=== PATIENT | female | born 1970 | race Caucasian/White ===

== ENCOUNTER → 2023-10-11 | Outpatient (CLI) | payer OTHER, SELFPAY ==
[2023-10-11 06:53] LABS: Absolute Lymphocyte Count 2.12 X10^3/uL (0.83-4.51); Absolute Neutrophil Count 2.2 X10^3/uL (2.0-7.7); Basophil# 0.06 X10^3/uL; Basophil% 1.2 % (0-1); Eosinophil# 0.32 X10^3/uL; Eosinophils% 6.3 % (0-5); Hematocrit 41.5 % (37-47); Hemoglobin 13.3 g/dL (12.0-15.0); Lymphocyte # 2.12 X10^3/ul (0.83-4.51); Lymphocyte % 41.7 % (19-41); Mean Corpuscular Hgb 29.2 pg (27.0-32.0); Mean Corpuscular Volume 91.2 fL (81-99); Mean Platelet Vol. 9.4 fl (6.2-12.0); Monocyte# 0.41 X10^3/uL; Monocyte% 8.1 % (0-10); NRBC Flagged by Analyzer 0 % (0-5); Neutrophil # 2.15 X10^3/uL (2.7-7.7); Neutrophil % 42.3 % (47-70); Platelet Count 363 K/mm3 (150-450); RBC Distribution Width CV 14.8 % (11.6-14.6); RBC Distribution Width SD 48.4 fl (35.1-43.9); Red Blood Count 4.55 M/mm3 (4.2-5.4); White Blood Count 5.1 K/mm3 (4.4-11.0)
[2023-10-11 08:12] LABS: ALB/GLOB Ratio 0.9 RATIO (0.9-2.4); AST(SGOT) 16 U/L (15-37); Alanine Aminotransfer ALT/SGPT 33 U/L (13-56); Albumin, Serum 3.7 g/dL (3.2-5.0); Alkaline Phosphatase 68 U/L (45-117); Anion Gap 6 (5-15); BUN 28 mg/dL (7-18); BUN/Creat Ratio 41.1 RATIO (10-20); Calcium,Total 9.1 mg/dL (8.5-10.1); Chloride 108 mmol/L (98-107); Cholesterol 238 mg/dL (200); Creatinine, Serum 0.68 mg/dL (0.55-1.02); EST Glomerular Filtration Rate 96 mL/min (>60); Est Glom Filt Rate - Afr Amer 116 mL/min (>60); Globulin 3.9 g/dL (2.2-4.2); Glucose 91 mg/dL (74-106); High Density Lipoprotein 81 mg/dL; Luteinizing Hormone 32.3 mIU/mL; Potassium 3.8 mmol/L (3.5-5.1); Protein, Total 7.6 g/dL (6.4-8.2); Sodium Level 140 mmol/L (136-145); Thyroid Stim Hormone (TSH) 2.56 uIU/mL (0.358-3.74); Triglycerides 47 mg/dL; Very Low Density Lipoprotein 9 mg/dL (5-40)
[2023-10-11 10:55] LABS: Hemoglobin A1c 5.3 % (3.8-5.6)
[2023-10-17 20:08] LABS: Estrogen, Total, Serum 123 pg/mL (.)
== END | disposition home or self-care (01) ==
LOC: LAB 06:27
PROVIDERS: PCP Nurse Practitioner Family; Referring Provider Nurse Practitioner Family; Visit Provider Nurse Practitioner Family
DX: E66.9 Obesity, unspecified (principal); I10 Essential (primary) hypertension; N95.0 Postmenopausal bleeding
CPT/HCPCS: 36415; 80053; 80061; 82672; 83001; 83002; 83036; 84443; 85025

== ENCOUNTER → 2023-10-17 | Outpatient (CLI) | payer OTHER, SELFPAY ==
--- NOTE | 2023-10-17 12:13 | US_ITS ---
STUDY: ULTRASOUND TRANSVAGINAL CLINICAL: Female, 53 years old. POST MEHNAZ BLEEDING TECHNIQUE: Transvaginal COMPARISON: None. FINDINGS: Normal uterine size measuring 5.8 x 3.8 x 2.9 cm in maximal craniocaudal dimension. There are no myometrial masses. Normal endometrial thickness measuring 2 mm. There are no endometrial masses, and there is no fluid in the endometrial cavity. Normal uterine cervix. The ovaries are not visualized.. There is no free fluid in the pelvis. Polycystic ovary disease: No. US/Transvaginal Non- IMPRESSION: Normal transvaginal pelvic ultrasound. Electronically Signed: Gianni Macedo MD at 12:18 EDT ,
== END | disposition home or self-care (01) ==
LOC: US 12:11
PROVIDERS: PCP Nurse Practitioner Family; Referring Provider Nurse Practitioner Family; Visit Provider Nurse Practitioner Family
DX: N95.0 Postmenopausal bleeding (principal)
CPT/HCPCS: 76830

== ENCOUNTER → 2023-10-31 | Outpatient (CLI) | payer OTHER, SELFPAY ==
--- NOTE | 2023-10-31 | EMB_PTH ---
PATIENT: JENNIFER DYKES [facility]#:[id number] AGE/SX: 53/F ROOM: RE10/31/[address]: MARLO Horta : 1970 BED: DIS: 10/31/2023 SPEC #: [id number] RECD: 10/31/23 13:26 STATUS: ANDERS REDuc #: [id number] GREGORIA: 10/31/23 00:[address]: Allie Burleson NP DEPT: SURGICAL PATHOLOGY RECD BY: Jacky Damon ENTERED: 10/31/23 13:26 SP TYPE: ENDOM BX/C LIANE DR: Lary Urbina [facility], [employer] [facility] Tissues: Endometrium, NOS Procedures: Surgery Specimen Level IV HEADER OPERATION: Endometrial biopsy PRE-OP DIAGNOSIS: Pre-menopausal bleeding TISSUE SUBMITTED: Endometrial lining MICROSCOPIC DIAGNOSIS Endometrium, biopsy: Strips of benign superficial glandular mucosa. AM/mr 11/01/2023 MICROSCOPIC DESCRIPTION Slides are reviewed. GROSS DESCRIPTION Received is one container labeled with the patient's name and not further designated. The specimen consists of minute fragments of light iqbal soft tissue measuring in aggregate 0.1 x <0.1 x <0.1cm. The specimen is submitted in its entirety for cellblock preparation. AM/mr 10/31/2023 TC:5 CPT:65467
[2023-11-07 16:10] LABS: HPV APTIMA, High Risk Negative (Negative)
== END | disposition home or self-care (01) ==
PROVIDERS: PCP Nurse Practitioner Family; Referring Provider Nurse Practitioner Women's Health; Visit Provider Nurse Practitioner Women's Health
DX: N95.0 Postmenopausal bleeding (principal)
CPT/HCPCS: 87624; 88175; 88305; G0145

== ENCOUNTER → 2023-11-13 | Outpatient (CLI) | payer OTHER, SELFPAY ==
--- NOTE | 2023-11-13 11:47 | BI_ITS ---
MAMMOGRAPHY - BILATERAL SCREENING REASON FOR EXAM: Female, 53 years old. Routine annual screening examination. PERTINENT HISTORY: Non-contributory. Remote left excisional breast biopsy. TECHNIQUE: Digital bilateral breast cyndi (3D mammographic acquisition) in the CC and MLO projections. 2-D mediolateral oblique (MLO) and craniocaudad (CC) views of both breasts were obtained. CAD: Full Field Digital Mammography with Computer Added Detection was performed. COMPARISON: No comparison mammograms available at this time. If any prior films become available, an addendum to this report can be generated. FINDINGS: Breast Composition: The breasts are almost entirely fatty. There are no dominant masses or suspicious calcifications. There is a 4.6 mm calcified nodule in the retroareolar region of the left breast suggestive of a calcified fibroadenoma. Fat-containing bilateral axillary lymph nodes. No other significant abnormalities are identified. BI/SCRN MAMM (CAD)W/CYNDI BILAT IMPRESSION: Negative screening mammogram. Yearly followup mammogram recommended. (A) ASSESSMENT CATEGORY: BIRADS Category 2: Benign. A letter regarding these results will be sent to the patient by the facility within 30 days. Approximately 10% of breast cancers are not detected by mammography. A normal mammogram should not delay biopsy of a clinically suspicious abnormality. [id number] Electronically Signed: Alton Davis MD at 14:39 EDT ,
== END | disposition home or self-care (01) ==
LOC: OPBI 11:47
PROVIDERS: PCP Nurse Practitioner Family; Referring Provider Nurse Practitioner Women's Health; Visit Provider Nurse Practitioner Women's Health
DX: Z12.31 Encounter for screening mammogram for malignant neoplasm of breast (principal)
CPT/HCPCS: 77063; 77067

== ENCOUNTER → 2023-11-13 | Outpatient (CLI) | payer OTHER, SELFPAY | END | disposition home or self-care (01) | LOC: SL 12:53 | PROVIDERS: PCP Nurse Practitioner Family; Referring Provider Nurse Practitioner Family; Visit Provider Nurse Practitioner Family | DX: G47.10 Hypersomnia, unspecified (principal) | CPT/HCPCS: 95806 ==

== ENCOUNTER → 2024-11-19 | Outpatient (CLI) | payer OTHER, SELFPAY ==
--- NOTE | 2024-11-19 13:00 | BI_ITS ---
EXAM: SCRN MAMM (CAD)W/CYNDI BILAT DATE: 11/19/2024 CLINICAL HISTORY: F, Age 54 y/o , SCREEN FOR BREAST CANCER No family history. BREAST CANCER RISK ASSESSMENT: Not assessed. TECHNIQUE: Bilateral screening digital breast tomosynthesis with 2D and 3D images. Computer aided detection. COMPARISON: Prior exam(s) dated November 13, 2023.. FINDINGS: TISSUE DENSITY: The breast tissue is composed of scattered area of fibroglandular density. Bilateral Breast Mammographic Findings: No significant masses, calcifications or other abnormalities are identified. Stable calcified 4.5 mm nodule in the lateral retroareolar region of the left breast. No suspicious masses, areas of developing architectural distortion, or suspicious calcifications. There has been no significant interval change. BI/SCRN MAMM (CAD)W/CYNDI BILAT IMPRESSION: OVERALL FINAL ASSESSMENT: BIRADS 2 BENIGN FINDING RECOMMENDATION: Routine annual follow-up in 1 Year A letter with findings and recommendations will be mailed to the patient. Reading Location: [place] [address]
== END | disposition home or self-care (01) ==
LOC: OPBI 13:00
PROVIDERS: PCP Nurse Practitioner Family; Referring Provider Nurse Practitioner Women's Health; Visit Provider Nurse Practitioner Women's Health
DX: Z12.31 Encounter for screening mammogram for malignant neoplasm of breast (principal)
CPT/HCPCS: 77063; 77067

== ENCOUNTER → 2025-01-27 | Outpatient (CLI) | payer OTHER, SELFPAY ==
--- OUTSIDE RECORDS SUMMARY | 2025-01-27 06:36 | XMS RPT_ITS | CCD ---
Author Organization [facility] Care Team Providers Care Breaker Up Machine Operator Name Role Phone ROSARIO SUERO MD Unavailable Carlitos JOURNEY LINEMAN-C, Lary Primary Care Provider [phone] Assessment, Health Risk Attending Provider Unava ilable Assessment, Health Risk Referring Provider Unava ilable Carlitos JOURNEY LINEMAN-C, Lary Referring Provider Gorham JOURNEY LINEMAN-C, Allie Attending Provider [phone] Benjy JOURNEY LINEMAN-C, Allie Referring Provider [phone] Assessment, Health Risk Attending Unavaila ble Assessment, Health Risk Referring Unavaila ble [facility] Unavailabl e Beam [facility], [place] Attending Unavailable Beam [facility], [place] Referring Unavailable [facility] Unavailabl Luiz Chen Attending Unavailable [facility] Unavailabl e Carlitos [facility], [facility] Referring Unavailabl e Gorham JOURNEY LINEMANAllie Attending Unavailable [facility] Unavailabl e [facility] Referring Unavailabl e Gorham JOURNEY LINEMANAllie Attending Unavailable Benjy Allie BLANK Referring Unavailable [facility] UnavailCasper Gonzalez Referring Unavailable [facility] UnavailCasper Gonzalez Attending Unavailable Medications Current Medications Medication Drug Class(es) Dates Sig (Normalized) Sig (Original) amLODIPine 2.5 mg oral tablet (2 sources) Dihydropyridine Calcium Channel Jerald Start: 10-31-2023 take 1 tablet by mouth once daily Amlodipine (Norvasc) 2.5 mg tablet Active 2.5 mg PO DAILY October 31, 2023 12:00am rosuvastatin calcium 5 mg oral tablet (2 sources) HMG-CoA Reductase Inhibitor Start: 11-04-2024 take 1 tablet by mouth once daily Rosuvastatin (Crestor) 5 mg tablet Active 5 mg PO DAILY November 04, 2024 12:00am Semaglutide (Weight Loss) (2 sources) Start: 11-04-2024 Semaglutide (Weight Loss) 2.4 mg/0.75 mL pen injector Active mg SC November 04, 2024 12:00am Completed/Discontinued Medications Medication Drug Class(es) Dates Sig (Normalized) Sig (Original) predniSONE 10 mg oral tablet (2 sources) Start: 03-02-2024 End: 11-04-2024 take 4 tablets by mouth once daily, then take 3 tablets by mouth once daily, then take 2 tablets by mouth once daily, then take 1 tablet by mouth once daily Prednisone 10 mg tablet Discontinued 10 mg PO DAILY March 02, 2024 12:00am November 04, 2024 11:19am 4 tablets daily x3 days, then 3 tablets daily x3 days, then 2 tablets daily x3 days, then 1 tablet daily x3 days Problems Active Problems Problem Classification Problem Date Documented Date Episodic/Chronic Essential hypertension (2 sources) Hypertensive disorder; Translations: [Essential (primary) hypertension] 10-31-2023 Chronic Immunizations and screening for infectious disease (1 source) Patient encounter status; Translations: [Encounter for screening for COVID-19] 01-16-2022 Episodic Menopausal disorders (2 sources) Postmenopausal bleeding; Translations: [Postmenopausal bleeding] 10-31-2023 Chronic Other nutritional; endocrine; and metabolic disorders (2 sources) Obesity; Translations: [Obesity, unspecified] 10-31-2023 Chronic Comment on above: Has lost 100# with d iet and exercise Other screening for suspected conditions (not mental disorders or infectious disease) (1 source) Encounter for screening mammogram for malignant neoplasm of breast; Translations: [Encounter for screening mammogram for malignant neoplasm of breast] Onset: 11-25-2024 Episodic Poisoning by nonmedicinal substances (2 sources) Allergic reaction to wasp sting; Translations: [Toxic effect of venom of wasps, accidental (unintentional), initial encounter] 03-02-2024 Episodic Past or Other Problems Problem Classification Problem Date Documented Da te Episodic/Chronic NEGATED: Highlighted row has been ruled out!Unclassified (1 source) No Problem Information Available Results Test Name Value Interpretation Reference Range Facility Breast imaging reportOrdered By: Alton Davis on 11-19-2024 Study report [facility] Imaging Services [address] [place] [address] SCRN MAMM (CAD)W/CYNDI BILAT MR#: [id number] Acct: [id number] Name: JENNIFER DYKES Rep #: [id number] : 1970 F 54 From: Madhav Davis MD PCP: DOMINGA Pak, JOURNEY LINEMAN-C Status: REG CLI Study:SCRN MAMM (CAD)W/CYNDI BILAT Date of Exa m: 11/19/24 Exam# [id number] Ordering Dr: Allie Burleson NP JOURNEY LINEMAN-C EXAM: SCRN MAMM (CAD)W/CYNDI BILAT DATE: 11/19/2024 CLINICAL HISTORY: F, Age 54 y/o , SCREEN FOR BREAST CANCER No family history. BREAST CANCER RISK ASSESSMENT: Not assessed. TECHNIQUE: Bilateral screening digital breast tomosynthesis with 2D and 3D images. Computeraided detection. COMPARISON: Prior exam(s) dated November 13, 2023.. FINDINGS: TISSUE DENSITY: The breast tissue is composed of scattered area of fibroglandular density. Bilateral Breast Mammographic Findings: No significant masses, calcifications or other abnormalities are identified. Stable calcified 4.5 mm nodule in the lateral retroareolar region of the left breast. No suspicious masses, areas of developing architectural distortion, or suspicious calcifications. There has been no significant interval change. BI/SCRN MAMM (CAD)W/CYNDI BILAT IMPRESSION: OVERALL FINAL ASSESSMENT: BIRADS 2 BENIGN FINDING RECOMMENDATION: Routine annual follow-up in 1 Year A letter with findings and recommendations will be mailed to the patient. Reading Location: [facility] CC: MARLO Burleosn; [facility] JOURNEY LINEMAN-Claude Urbina ~ Blankbook Stitching Machine Operator: Signed [facility] SCRN MAMM (CAD)W/CYNDI BILATo n 11-19-2024 SCRN MAMM (CAD)W/CYNDI BILAT [facility] Imaging Services [address] [place] [address] SCRN MAMM (CAD)W/CYNDI BILAT MR#: [id number] Acct: [id number] Name: JENNIFER DYKES Rep #: [id number] : 1970 F 54 From: Alton valdivia MD PCP: DOMINGA Pak, JOURNEY LINEMAN-Claude Status: REG CLI Study: SCRN MAMM (CAD)W/CYNDI BILAT Date of Exam: 11/08 08/04 Exam# [id number] Ordering Dr: Allie Burleson NP JOURNEY LINEMAN -Claude EXAM: SCRN MAMM (CAD)W/CYNDI BILAT DATE: 11/19/2024 CLINICAL HISTORY: F, Age 54 y/o , SCREEN FOR BREAST CANCER No family history. BREAST CANCER RISK ASSESSMENT: Not assessed. TECHNIQUE: Bilateral screening digital breast tomosynthesis with 2D and 3D images. Computer aided detection. COMPARISON: Prior exam(s) dated November 13, 2023.. FINDINGS: TISSUE DENSITY: The breast tissue is composed of scattered area of fibroglandular density. Bilateral Breast Mammographic Findings: No significant masses, calcifications or other abnormalities are identified. Stable calcified 4.5 mm nodule in the lateral retroareolar region of the left breast. No suspicious masses, areas of developing architectural distortion, or suspicious calcifications. There has been no significant interval change. BI/SCRN MAMM (CAD)W/CYNDI BILAT IMPRESSION: OVERALL FINAL ASSESSMENT: BIRADS 2 BENIGN FINDING RECOMMENDATION: Routine annual follow-up in 1 Year A letter with findings and recommendations will be mailed to the patient. Reading Location: [facility] CC: MARLO Burleson; [facility] MARLO Urbina Blankbook Stitching Machine Operator: Signed Normal [facility] Almond Huller Office Visit Reporton 11-04-2024 Almond Huller Office Visit Report [facility] [address], [address] [place] [address] OFFICE VISIT Date of Service: 11/04/24 MR#: [id number] Acct: [id number] Name: JENNIFER DYKES Rep #: [id number] : 1970 Provider: MARLO farfan Age/Sex: 54/F [place] [facility] [place]: Signed Intake Vital Signs 03/02/24 11:48 11/04/24 11:15 11/04/24 11:19 Height 5 ft 3 in 5 ft 3 in 5 ft 3 in Weight: 205 lb 180 lb 8 oz BMI 36.3 31.9 BP 132/96 H 122/84 H Blood Pressure Location Lt brachial Position Sitting Respiration 16 Pulse 68 Pulse Source Monitor Temp 98.6 F Pulse Oximetry (%) 98 Oxygen Delivery Method room air 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) Chief Complaint: Annual 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 Is patient in pain?: No Allergies No Known Allergies Allergy (Unverified 11/04/24 11:15) Medications ???Medication ???Instructions ???Recorded ???Confirmed ???Type amlodipine 2.5 mg tablet (Norvasc) 2.5 mg PO DAILY 10/31/23 5 History rosuvastatin 5 mg tablet (Crestor) 5 mg PO DAILY Cholesterol 11/04/24 History semaglutide (weight loss) 2.4 mg subcut Weight loss 11/04/24 History mg/0.75 mL subcutaneous pen injector Is last menstrual period known: No Post menopausal: Yes Patient : No : No PFSH Medical History Allergic reaction to wasp sting Social History adopted: No household members: spouse number of children: 2 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 current occupational exposures/hazards: No pets and animals: Yes history of recent travel: Yes sexually active: Yes Smoking Status: Never smoker second hand exposure: No alcohol intake: current alcohol intake frequency: a few times a month Alcohol type: beer diet: low salt well-balanced diet: about half the time caffeine: Yes eating out: rarely or never during the past year weight has: decreased > 10 lbs frequency: daily duration: 15-30 minutes/day seatbelt use: always do you feel safe at home: Yes additional social history: - Michael- Retired History 2 Elective abortions Hx Para 2 Spontaneous abortions Hx # Term Pregnancies Ectopic pregnancies Hx # Pregnancies Multiple births # of living children 2 Past Pregnancies Del. Date Name GA/Weeks Outcome Route Bth Weight Gen Labor Lgth Anesthesia Del Locatn Provider FOB Unknown Jung Jacob Isa HPI Encounter for routine gynecological examination Details: JENNIFER DYKES is a 54 year old who presents for annual exam. Denies concerns. Rare menses Last PAP: 2023 History of abnormal PAP: no Last mammogram: 11/2023 History of abnormal mammogram: benign bx Colon cancer screening: cologuard pending Other preventative health care screenings: Susan Urbina NP Female Reproductive History Questions: metorrhagia: No, sexually active: Yes, dyspareunia: No and PCB: No ROS Const Constitutional: Denies fatigue, weight gain or weight loss Cardio Card: Denies chest pain Resp Resp: Denies cough or dyspnea on exertion GI GI: Denies abdominal pain, bloating, change in stool character, constipation or vomiting : Reports as per HPI; Denies difficulty voiding, pelvic pain, urinary frequency, urinary incontinence, urinary urgency, vaginal discharge or vaginal pruritus Exam Const General: cooperative, healthy appearing, no acute distress and well developed Orientation: alert, oriented to person and oriented to place HENRI Head: normal to inspection Neck Neck: normal visual inspection Thyroid: thyroid normal Lymphatic: no lymphadenopathy noted Chest Breast inspection: normal inspection of the breasts and normal inspection of the axillae Breast palpation: normal palpation of the breasts, normal palpation of the axillae and no axillary lymphadenopathy Resp Effort Inspection: normal respiratory effort GI Palpation: soft, no masses and nontender Rectal Exam: deferred External Female Exam: normal external appearance and normal appearance of the urethra Urethra: normal appearance of the urethra and normal palpation Speculum Exam - Vagina: normal appearance of the vagina and normal vaginal discharge Speculum Exam - Cervix: normal appearance of the cervix Bimanual Exam- Vagina Uterus: normal bimanual exam, uterine size normal, uterine shape normal and non-tender Bimanual Exam- Adnexa, other: normal adnexae, no masses, normal and non-tender Pelvic Support: normal Neuro General: patient alert and patient oriented x3 Psych Affect: normal affect Coding Level of Care Code Off vis,est,prev 40-64yrs Diagnoses Encounter for gynecol (more content not included)... Normal [facility] Absolute lymphocyte countOrd ered By: HEALTH ASSESSMENT on 09-23-2024 Lymphocytes Auto (Unsp spec) [#/Vol] 2.12 10*3/uL 0.83-4.51 [facility] Absolute neutrophil countOrd ered By: HEALTH ASSESSMENT on 09-23-2024 Neutrophils (Bld) [#/Vol] 1.3 10*3/uL Low 2.0-7.7 [facility] Absolute nucleated red blood cell countOrdered By: HEALTH ASSESSMENT on 09-23-2024 Nucleated RBC (Bld) [#/Vol] 0.00 10*3/uL 0-5 [facility] Anion gap in Serum or Plasma Ordered By: HEALTH ASSESSMENT on 09-23-2024 Anion gap [Moles/Vol] 12 mmol/L 5- [facility] BUN/creatinine ratioOrdered By: HEALTH ASSESSMENT on 09-23-2024 Urea nitrogen/Creatinine [Mass ratio] 17.4 mg/mg 10- [facility] Bilirubin directOrdered By: HEALTH ASSESSMENT on 09-23-2024 Bilirubin.direct [Mass/Vol] 0.15 mg/dL 0.00-0.30 [facility] Bilirubin, totalOrdered By: HEALTH ASSESSMENT on 09-23-2024 Bilirubin [Mass/Vol] 0.40 mg/dL 0.00-1.30 [facility] CBC, Employeeon 09-23-2024 Absolute Lymph 2.12 X10 3/uL Normal 0.83-4.51 [facility] Comment on above: Performed By: #### L 500.2900, L100.0200, L400.0100 #### [facility] [address] [place], [address] Absolute Neut 1.3 X10 3/uL Low 2.0-7.7 [facility] Comment on above: Performed By: #### L 500.2900, L100.0200, L400.0100 #### [facility] [address] [place], [address] Basophils/100 WBC (Bld) 1.5 % High 0-1 [facility] Comment on above: Performed By: #### L 500.2900, L100.0200, L400.0100 #### [facility] [address] [place], [address] Eosinophils/100 WBC (Bld) 4.5 % Normal 0-5 [facility] Comment on above: Performed By: #### L 500.2900, L100.0200, L400.0100 #### [facility] [address] [place], [address] Erythrocyte distribution width (RBC) [Ratio] 13.5 % Normal 11.6-14.6 [facility] Comment on above: Performed By: #### L 500.2900, L100.0200, L400.0100 #### [facility] [address] [place], [address] Hematocrit (Bld) [Volume fraction] 39.4 % Normal 37-47 [facility] Comment on above: Performed By: #### L 500.2900, L100.0200, L400.0100 #### [facility] [address] [place], [address] Hemoglobin (Bld) [Mass/Vol] 13.6 g/dL Normal 12.0-15.0 [facility] Comment on above: Performed By: #### L 500.2900, L100.0200, L400.0100 #### [facility] [address] [place], [address] Lymphocytes/100 WBC (Bld) 53.5 % High 19-41 [facility] Comment on above: Performed By: #### L 500.2900, L100.0200, L400.0100 #### [facility] [address] [place], [address] MCH (RBC) [Entitic mass] 29.6 pg Normal 27.0-32.0 [facility] Comment on above: Performed By: #### L 500.2900, L100.0200, L400.0100 #### [facility] [address] [place], [address] MCHC (RBC) [Mass/Vol] 34.5 g/dL Normal 32-36 [facility] Comment on above: Performed By: #### L 500.2900, L100.0200, L400.0100 #### [facility] [address] [place], [address] MCV (RBC) [Entitic vol] 85.7 fL Normal 81-99 [facility] Comment on above: Performed By: #### L 500.2900, L100.0200, L400.0100 #### [facility] [address] [place], [address] Monocytes/100 WBC (Bld) 8.1 % Normal 0-10 [facility] Comment on above: Performed By: #### L 500.2900, L100.0200, L400.0100 #### [facility] [address] [place], [address] Neutrophils/100 WBC (Bld) 32.1 % Low 47-70 [facility] Comment on above: Performed By: #### L 500.2900, L100.0200, L400.0100 #### [facility] [address] [place], [address] NRBC # 0.00 10 3/uL Normal 0-5 [facility] Comment on above: Performed By: #### L 500.2900, L100.0200, L400.0100 #### [facility] [address] [place], [address] Nucleated RBC (Bld) [#/Vol] 0 10*3/uL Normal 0-5 [facility] Comment on above: Performed By: #### L 500.2900, L100.0200, L400.0100 #### [facility] [address] [place], [address] Platelet mean volume (Bld) [Entitic vol] 9.5 fL Normal 6.2-12.0 [facility] Comment on above: Performed By: #### L 500.2900, L100.0200, L400.0100 #### [facility] [address] [place], [address] Platelets (Bld) [#/Vol] 288 10*3/uL Normal 150-450 [facility] Comment on above: Performed By: #### L 500.2900, L100.0200, L400.0100 #### [facility] [address] [place], [address] RBC (Bld) [#/Vol] 4.60 10*6/uL Normal 4.2-5.4 [facility] Comment on above: Performed By: #### L 500.2900, L100.0200, L400.0100 #### [facility] [address] [place], [address] RDW SD 42.5 fl Normal 35.1-43.9 [facility] Comment on above: Performed By: #### L 500.2900, L100.0200, L400.0100 #### [facility] [address] [place], [address] WBC (Bld) [#/Vol] 4.0 10*3/uL Low 4.4-11.0 [facility] Comment on above: Performed By: #### L 500.2900, L100.0200, L400.0100 #### [facility] [address] [place], [address] Calculated very low density lipoprotein (VLDL) cholesterol measurementOrdered By: HEALTH ASSESSMENT on 09-23-2024 Calculated very low density lipoprotein (VLDL) cholesterol measurement 12 mg/dL 5-40 [facility] Carbon dioxide, total [Moles /volume] in Central venous bloodOrdered By: HEALTH ASSESSMENT on 09-23-2024 CO2 [Moles/Vol] 21.6 mmol/L 21.0-32.0 [facility] Chloride assayOrdered By: HE ALTH ASSESSMENT on 09-23-2024 Chloride [Moles/Vol] 106 mmol/L 98-108 [facility] Employee Profileon Cholesterol in LDL [Mass/Vol] 191 mg/dL High 0-130 [facility] Comment on above: Performed By: #### L 500.2900, L100.0200, L400.0100 #### [facility] [address] [place], [address] Erythrocyte distribution wid th ratioOrdered By: HEALTH ASSESSMENT on 09-23-2024 Erythrocyte distribution width (RBC) [Ratio] 13.5 % 11.6-14.6 [facility] Erythrocyte distribution wid th standard deviationOrdered By: HEALTH ASSESSMENT on 09-23-2024 Erythrocyte distribution width (RBC) [Ratio] 42.5 fl 35.1-43.9 [facility] Glomerular filtration rate ( GFR) estimation/1.73 sq m using serum, plasma, or whole bOrdered By: HEALTH ASSESSMENT on 09-23-2024 GFR/1.73 sq M.predicted among non-blacks MDRD (S/P/Bld) [Vol rate/Area] 96 mL/min/{1.73_m2} >60 [facility] Comment on above: mL/min/1.73m2 CKD-EP I Creatinine Equation (2020) Hematocrit Auto (Bld) [Volum e fraction]Ordered By: HEALTH ASSESSMENT on 09-23-2024 Hematocrit (Bld) [Volume fraction] 39.4 % 37-47 [facility] Hemoglobin measurementOrdere d By: HEALTH ASSESSMENT on 09-23-2024 Hemoglobin (Bld) [Mass/Vol] 13.6 g/dL 12.0-15.0 [facility] - Chemistry and C hemistry - challengeOrdered By: HEALTH ASSESSMENT on 09-23-2024 AST [Catalytic activity/Vol] 15 U/L <32 [facility] Lactate dehydrogenase (LDH) measurementOrdered By: HEALTH ASSESSMENT on 09-23-2024 LDH [Catalytic activity/Vol] 168 U/L 84-246 [facility] Low density lipoprotein (LDL ) cholesterol measurementOrdered By: HEALTH ASSESSMENT on 09-23-2024 Cholesterol in LDL [Mass/Vol] 191 mg/dL High 0-130 [facility] MCV (mean corpuscular volume ) determinationOrdered By: HEALTH ASSESSMENT on 09-23-2024 MCV (RBC) [Entitic vol] 85.7 fL 81-99 [facility] Mean corpuscular hemoglobin (MCH) determinationOrdered By: HEALTH ASSESSMENT on 09-23-2024 MCH (RBC) [Entitic mass] 29.6 pg 27.0-32.0 [facility] Mean corpuscular hemoglobin concentration (MCHC) determinationOrdered By: HEALTH ASSESSMENT on 09-23-2024 MCHC (RBC) [Mass/Vol] 34.5 g/dL 32-36 [facility] Mean platelet volume determi nationOrdered By: HEALTH ASSESSMENT on 09-23-2024 Platelet mean volume (Bld) [Entitic vol] 9.5 fL 6.2-12.0 [facility] Neutrophil percentageOrdered By: HEALTH ASSESSMENT on 09-23-2024 Neutrophils/100 WBC (Bld) 32.1 % Low 47-70 [facility] Nucleated red blood cell per centageOrdered By: HEALTH ASSESSMENT on 09-23-2024 Nucleated RBC/100 WBC (Bld) [Ratio] 0 % 0-5 [facility] Platelet countOrdered By: HE ALTH ASSESSMENT on 09-23-2024 Platelets (Bld) [#/Vol] 288 10*3/uL 150-450 [facility] Potassium measurement (mass/ volume)Ordered By: HEALTH ASSESSMENT on 09-23-2024 Potassium (Unsp spec) [Mass/Vol] 3.4 mmol/L 3.3-5.1 [facility] RBC Auto (Bld) [#/Vol]Ordere d By: HEALTH ASSESSMENT on 09-23-2024 RBC (Bld) [#/Vol] 4.60 10*6/uL 4.2-5.4 [facility] Screening total cholesterol/ high density lipoprotein (HDL) cholesterol ratioOrdered By: HEALTH ASSESSMENT on 09-23-2024 Cholesterol.total/Choles terol in HDL [Mass ratio] 3.70 {ratio} [facility] Serum creatinine measurement (mass/volume)Ordered By: HEALTH ASSESSMENT on 09-23-2024 Creatinine [Mass/Vol] 0.75 mg/dL 0.70-1.20 [facility] Serum globulin measurementOr dered By: HEALTH ASSESSMENT on 09-23-2024 Globulin (S) [Mass/Vol] 2.8 g/dL 2.2-4.2 [facility] Serum glucose measurement (m ass/volume)Ordered By: HEALTH ASSESSMENT on 09-23-2024 Glucose [Mass/Vol] 91 mg/dL 70-99 [facility] Serum or plasma alanine camara otransferase (ALT) measurementOrdered By: HEALTH ASSESSMENT on 09-23-2024 ALT [Catalytic activity/Vol] 12 U/L <35 [facility] Serum or plasma albumin angelina urement (mass/volume)Ordered By: HEALTH ASSESSMENT on 09-23-2024 Albumin [Mass/Vol] 4.2 g/dL 3.5-5.0 [facility] Serum or plasma albumin/glob ulin mass ratioOrdered By: HEALTH ASSESSMENT on 09-23-2024 Albumin/Globulin [Mass ratio] 1.5 {ratio} 0.9-2.4 [facility] Serum or plasma alkaline dave sphatase measurementOrdered By: HEALTH ASSESSMENT on 09-23-2024 ALP [Catalytic activity/Vol] 45 U/L 35-104 [facility] Serum or plasma calcium angelina urement (mass/volume)Ordered By: HEALTH ASSESSMENT on 09-23-2024 Calcium [Mass/Vol] 9.3 mg/dL 7.6-11.0 [facility] Serum or plasma cholesterol in HDL measurement (mass/volume)Ordered By: HEALTH ASSESSMENT on 09-23-2024 Cholesterol in HDL [Mass/Vol] 75 mg/dL >40 [facility] Comment on above: National Cholesterol Education Program (NCEP) guidelines:<40 mg/dL: Low HDL-cholesterol (major risk factor for CHD)>= 60 mg/dL: High HDL-cholesterol (negative risk factor for CHD)HDL-cholesterol is affected by a number of factors, e.g. smoking, exercise, hormones, sex and age. Serum or plasma cholesterol measurement (mass/volume)Ordered By: HEALTH ASSESSMENT on 09-23-2024 Cholesterol [Mass/Vol] 278 mg/dL High <201 [facility] Comment on above: Cholesterol level, D esirable <200 mg/dLBorderline high cholesterol 200-239 mg/dLHigh cholesterol >=240 mg/dLRecommendations of the NCEP Adult Treatment Panel for the following risk-cutoff thresholds for the [place] population. Serum or plasma urea nitroge n measurement (mass/volume)Ordered By: HEALTH ASSESSMENT on 09-23-2024 Urea nitrogen [Mass/Vol] 13 mg/dL 4-19 [facility] Serum or plasma uric acid me asurement (mass/volume)Ordered By: [facility] ASSESSMENT on 09-23-2024 Urate [Mass/Vol] 3.4 mg/dL 2.6-6.0 [facility] Comment on above: The drugs N-Acetylcy steine and Metamizole may falsely depress this assay. Sodium levelOrdered By: HEAL ASSESSMENT on 09-23-2024 Sodium [Moles/Vol] 139 mmol/L 133-145 [facility] Total proteinOrdered By: HEA [facility] ASSESSMENT on 09-23-2024 Protein [Mass/Vol] 7.0 g/dL 5.9-8.4 [facility] Triglycerides measurementOrd ered By: HEALTH ASSESSMENT on 09-23-2024 Triglyceride [Mass/Vol] 60 mg/dL <199 [facility] Comment on above: The drugs N-Acetylcy steine and Metamizole may falsely depress this assay. Normal range: <150 mg/dLBorderline High: 150-199 mg/dLHigh: 200-499 mg/dLVery High: >500 mg/dL Urinalysis, Employeeon 09-23 BILIRUBIN URINE Normal Negative [facility] Comment on above: Order Comment: Urine , Random Result Comment: REFU SED Performed By: #### L 500.2900, L100.0200, L400.0100 #### [facility] [address] [place], [address] Clarity (U) Normal Clear [facility] Comment on above: Order Comment: Urine , Random Result Comment: REFU SED Performed By: #### L 500.2900, L100.0200, L400.0100 #### [facility] [address] [place], [address] Color (U) Normal Yellow [facility] Comment on above: Order Comment: Urine , Random Result Comment: REFU SED Performed By: #### L 500.2900, L100.0200, L400.0100 #### [facility] [address] [place], [address] GLUCOSE, UR Normal Normal [facility] Comment on above: Order Comment: Urine , Random Result Comment: REFU SED Performed By: #### L 500.2900, L100.0200, L400.0100 #### [facility] [address] [place], [address] KETONE UR Normal Negative [facility] Comment on above: Order Comment: Urine , Random Result Comment: REFU SED Performed By: #### L 500.2900, L100.0200, L400.0100 #### [facility] [address] [place], [address] LEUK ESTERASE Normal Negative [facility] Comment on above: Order Comment: Urine , Random Result Comment: REFU SED Performed By: #### L 500.2900, L100.0200, L400.0100 #### [facility] [address] [place], [address] Nitrite Ql (U) Normal Negative [facility] Comment on above: Order Comment: Urine , Random Result Comment: REFU SED Performed By: #### L 500.2900, L100.0200, L400.0100 #### [facility] [address] [place], [address] OCCULT BLOOD-UR Normal Negative [facility] Comment on above: Order Comment: Urine , Random Result Comment: REFU SED Performed By: #### L 500.2900, L100.0200, L400.0100 #### [facility] [address] [place], [address] pH UR Normal 5.0 - 8.0 [facility] Comment on above: Order Comment: Urine , Random Result Comment: REFU SED Performed By: #### L 500.2900, L100.0200, L400.0100 #### [facility] [address] [place], [address] PROT DIPSTX Normal Negative [facility] Comment on above: Order Comment: Urine , Random Result Comment: REFU SED Performed By: #### L 500.2900, L100.0200, L400.0100 #### [facility] [address] [place], [address] SP.GR. DIPSTX Normal 1.002-1.030 [facility] Comment on above: Order Comment: Urine , Random Result Comment: REFU SED Performed By: #### L 500.2900, L100.0200, L400.0100 #### [facility] [address] [place], [address] UR Preservative Normal [facility] Comment on above: Order Comment: Urine , Random Result Comment: REFU SED Performed By: #### L 500.2900, L100.0200, L400.0100 #### [facility] [address] [place], [address] UROBILI Normal Normal [facility] Comment on above: Order Comment: Urine , Random Result Comment: REFU SED Performed By: #### L 500.2900, L100.0200, L400.0100 #### [facility] [address] [place], [address] White blood cell (WBC) count Ordered By: HEALTH ASSESSMENT on 09-23-2024 WBC (Bld) [#/Vol] 4.0 10*3/uL Low 4.4-11.0 [facility] M100.678on 03-18-2024 M100.678 PLEASE CALL [phone] WIT H RESULTS CALLED VENEER GLUE SPREADER JORJE. INCORRECT SWAB WAS COLLECTED COVID NO RESULT FLUA NO RESULT FLUB NO RESULT RSV NO RESULT SARS-CoV-2 (COVID 19) Negative INFLUENZA A Negative INFLUENZA B Negative RSV PCR Negative Normal [facility] Comment on above: Performed By: #### M [id number] #### [facility] [address] [place], [address] Urgent Care Visit Reporton 0 03-02-2024 Urgent Care Visit Report [facility] [address], [address] [place], [place] [address] OFFICE VISIT Date of Service: 03/02/24 MR#: [id number] Acct: [id number] Name: JENNIFER DYKES Rep #: [id number] 2 : 1970 Provider: CHRISTIANO Foss Age/Sex: 54/F Location: [facility] [place] Status: Signed Intake Vital Signs 10/31/23 11:40 03/02/24 11:48 Height 5 ft 3 in 5 ft 3 in Weight: 216 lb 8 oz 205 lb BMI 38.3 36.3 BP 136/84 H 132/96 H Blood Pressure Location Lt brachial Position Sitting Respiration 16 Pulse 68 Pulse Source Monitor Temp 98.6 F Temp Source Temporal Pulse Oximetry (%) 98 Oxygen Delivery Method room air Intake Visit Reasons: R WRIST SWELLING/BEE STING/ALLG RX Chief Complaint: RT WRIST SWELLING BEE STING 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 Accompanied by: Self Is patient in pain?: Yes Allergies No Known Allergies Allergy (Unverified 03/02/24 11:49) Medications ???Medication ???Instructions ???Recorded ???Confirmed ???Type amlodipine 2.5 mg tablet (Norvasc) 2.5 mg PO DAILY 10/31/23 03/02/24 History prednisone 10 mg tablet 10 mg PO DAILY #30 tabs 03/02/24 03/02/24 Rx PFSH Medical History (Updated 03/02/24 @ 13:27 by Luiz ALVARADO, PA) Allergic reaction to wasp sting Social History adopted: No household members: spouse number of children: 2 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 current occupational exposures/hazards: No pets and animals: Yes history of recent travel: Yes sexually active: Yes Smoking Status: Never smoker second hand exposure: No alcohol intake: current alcohol intake frequency: a few times a month Alcohol type: beer diet: low salt well-balanced diet: about half the time caffeine: Yes eating out: rarely or never during the past year weight has: decreased > 10 lbs frequency: daily duration: 15-30 minutes/day seatbelt use: always do you feel safe at home: Yes additional social history: - Michael- Retired HPI HPI Chief Complaint: RT WRIST SWELLING BEE STING Details: JENNIFER DYKES, is a 54 F who presents to the office today for initial evaluation status post wasp sting to left dorsal hand yesterday while outside with localized erythema, warmth, pruritus increasing over the last 24 hours as result. No complaints of constricted/pruritic airway or chest pain/shortness of breath/dyspnea on exertion. No [id number] products taken to assist. No other associated symptoms and no other alleviating/aggravatin g factors. ROS Const Constitutional: No other (as above) Exam Const General: cooperative, healthy appearing and no acute distress Orientation: alert and awake [facility] Head: normal to inspection Ears: hearing grossly normal bilaterally, external ears normal, TM's normal bilaterally and EAC's normal Nose: external nose normal, nares normal, septum normal and no nasal discharge Face and sinus: normal facial exam and face symmetric Mouth: oral mucosae normal, lip normal, tongue normal and oropharynx normal Throat: posterior oropharynx normal, tonsils normal, uvula midline and no postnasal drainage Eyes General: appearance normal, both eyes and all related structures Neck Neck: normal visual inspection, full ROM, no lymphadenopathy, no meningeal signs and supple Neck mass: No Thyroid: thyroid normal Lymphatic: no lymphadenopathy noted Chest Chest palpation inspection: normal inspection of the chest Resp Effort Inspection: normal respiratory effort and able to speak in complete sentences Auscultation: Bilateral: Clear to Auscultation Cardio Palpation: normal PMI Rate: regular rate Rhythm: regular rhythm Heart Sounds: S1 normal, S2 normal, no gallops, no murmurs and no rubs Pulses: radial pulses present GI Inspection: normal to inspection Palpation: soft and no hepatosplenomegaly Skin General: no rashes or lesions noted Neuro General: patient alert, patient awake and patient oriented x3 Cognition: normal cognition Speech: speech normal Extrem General: full ROM, capillary refill normal and normal exam except as noted (Right dorsal ulnar hand and ulnar wrist/forearm edema with trace erythema) Psych Appearance: grossly normal Mental Status: mental status grossly normal Mood: congruent mood Affect: normal affect Speech and Movement: speech and movement normal Attitude: cooperative Coding Level of Care Code Off vis,est,level 3 Diagnoses Allergic reaction to wasp sting T63.461A Assessment and Plan Assessment and Plan (1) Allergic reaction to wasp sting: Status: Acute Plan: Prednisone as prescribed today. Skin care measures as instructed today. Follow-up with PCP in 3 to 5 days should symptoms not improve, ED sooner should symptoms worsen or any other concerns develop (more content not included)... Normal [facility] Absolute lymphocyte countOrd ered By: [facility] Lary Carlitos on 10-11-2023 Lymphocytes Auto (Unsp spec) [#/Vol] 2.12 10*3/uL 0.83-4.51 [facility] Automated lymphocyte count a s percentage of total leukocytesOrdered By: [facility] Lary Urbina on 10-11-2023 Lymphocytes/100 WBC Auto (Unsp spec) 41.7 % 19-41 [facility] Basophil percentageOrdered B y: [facility] Lary Carlitos on 10-11-2023 Basophils/100 WBC (Bld) 1.2 % 0-1 [facility] Bilirubin [Mass/Vol] 0.30 mg/dL 0.20-1.00 [facility] Comment on above: For patients on eltr ombopag therapy, use of Dimension [place] TBIL is not recommended. Chloride [Moles/Vol] 108 mmol/L 98-107 [facility] Cholesterol [Mass/Vol] 238 mg/dL <200 [facility] Comment on above: <200 mg/dL Desirable 200-240 mg/dL Borderline >240 mg/dL High Risk Eosinophils/100 WBC (Bld) 6.3 % 0-5 [facility] Glucose [Mass/Vol] 91 mg/dL 74-106 [facility] Hemoglobin (Bld) [Mass/Vol] 13.3 g/dL 12.0-15.0 [facility] Monocytes/100 WBC (Bld) 8.1 % 0-10 [facility] Neutrophils (Bld) [#/Vol] 2.2 10*3/uL 2.0-7.7 [facility] Neutrophils/100 WBC (Bld) 42.3 % 47-70 [facility] Potassium [Moles/Vol] 3.8 mmol/L 3.5-5.1 [facility] Protein [Mass/Vol] 7.6 g/dL 6.4-8.2 [facility] Sodium [Moles/Vol] 140 mmol/L 136-145 [facility] Triglyceride [Mass/Vol] 47 mg/dL <199 [facility] Comment on above: The drugs N-Acetylcy steine and Metamizole may falsely depress this assay.Serum Triglycerides Reference Interval Normal <150 mg/dL Borderline high 150 - 199 mg/dL High 200 - 499 mg/dL Very High > or = 500 mg/dL WBC (Bld) [#/Vol] 5.1 10*3/uL 4.4-11.0 [facility] Determination of erythrocyte mean corpuscular volume (MCV)Ordered By: [facility] Lary Urbina on 10-11-2023 MCV (RBC) [Entitic vol] 91.2 fL 81-99 [facility] Erythrocyte distribution wid th ratioOrdered By: [facility] Lary Urbina on 10-11-2023 Erythrocyte distribution width (RBC) [Ratio] 14.8 % 11.6-14.6 [facility] Erythrocyte distribution wid th standard deviationOrdered By: [facility] Lary Urbina on 10-11-2023 Erythrocyte distribution width (RBC) [Entitic vol] 48.4 fL 35.1-43.9 [facility] Hematocrit Auto (Bld) [Volum e fraction]Ordered By: [facility] Lary Urbina on 10-11-2023 Hematocrit (Bld) [Volume fraction] 41.5 % 37-47 [facility] Immature granulocytes/100 WB C Auto (Bld)Ordered By: [facility] Lary Urbina on 10-11-2023 Immature granulocytes/100 WBC (Bld) 0.400 % 0.0-0.9 [facility] Comment on above: IG% - Immature Granu locytes (promyelocytes, myelocytes and metamyelocytes) > 1% indicates that a LEFT SHIFT is Present. Laboratory - Chemistry and C hemistry - challengeOrdered By: [facility] Lary Urbina on 10-11-2023 Albumin/Globulin [Mass ratio] 0.9 {ratio} 0.9-2.4 [facility] ALP [Catalytic activity/Vol] 68 U/L 45-117 [facility] ALT [Catalytic activity/Vol] 33 U/L 13-56 [facility] Cholesterol in HDL [Mass/Vol] 81 mg/dL >40 [facility] Comment on above: The drugs N-Acetylcy steine and Metamizole may falsely depress this assay. Reference Range HDL <40 mg/dL Low HDL Cholesterol HDL >or= 60 mg/dL High HDL Cholesterol Cholesterol in LDL [Mass/Vol] 148 mg/dL 0-130 [facility] CO2 [Moles/Vol] 26.0 mmol/L 21.0-32.0 [facility] Globulin (S) [Mass/Vol] 3.9 g/dL 2.2-4.2 [facility] Urea nitrogen/Creatinine [Mass ratio] 41.1 mg/mg 10-20 [facility] Laboratory - Hematology and Cell countsOrdered By: [facility] Lary Urbina on 10-11-2023 MCH (RBC) [Entitic mass] 29.2 pg 27.0-32.0 [facility] MCHC (RBC) [Mass/Vol] 32.0 g/dL 32-36 [facility] Nucleated RBC/100 WBC (Bld) [Ratio] 0 % 0-5 [facility] Platelet mean volume (Bld) [Entitic vol] 9.4 fL 6.2-12.0 [facility] Platelets (Bld) [#/Vol] 363 10*3/uL 150-450 [facility] No Panel InformationOrdered By: [facility] Lary Urbina on 10-11-2023 Estimated GFR (MDRD) Amer 116 mL/min >60 [facility] Comment on above: GFR Calc Estimated GFR (MDRD) Non-Af Amer 96 mL/min >60 [facility] Comment on above: Non- GFR Calc Follicle Stimulating Hormone 58.0 mIU/mL [facility] Comment on above: NORMAL REFERENCE RAN GES FEMALE FOLLICULAR 2.3 - 12.6 mIU/mL MID-CYCLE PEAK 5.2 - 17.5 mIU/mL LUTEAL 1.7 - 12.9 mIU/mL POST-MENOPAUSAL ON MHT 5.9 - 72.8 mIU/mL NOT ON MHT 12.7 - 132.2 mlU/mL MALE 0.7 - 10.8 mIU/mL Luteinizing Hormone 32.3 mIU/mL [facility] Comment on above: NORMAL REFERENCE RAN GES FEMALE FOLLICULAR 1.9 - 26.2 mIU/mL MID-CYCLE PEAK 22.8 - 76.1 mIU/mL LUTEAL 0.6 - 16.6 mIU/mL POST-MENOPAUSAL ON MHT 1.1 - 52.4 mIU/mL NOT ON MHT 8.6 - 61.8 mIU/mL MALE 1.2 - 10.6 mIU/mL VLDL Cholesterol 9 mg/dL 5-40 [facility] RBC Auto (Bld) [#/Vol]Ordere d By: [facility] Lary Urbina on 10-11-2023 RBC (Bld) [#/Vol] 4.55 10*6/uL 4.2-5.4 [facility] Serum or plasma calcium angelina urement (mass/volume)Ordered By: [facility] Lary Urbina on 10-11-2023 Calcium [Mass/Vol] 9.1 mg/dL 8.5-10.1 [facility] Serum or plasma creatinine m easurement (mass/volume)Ordered By: [facility] Lary Urbina on 10-11-2023 Creatinine [Mass/Vol] 0.68 mg/dL 0.55-1.02 [facility] Comment on above: The validity of the calculated GFR & GFRAA in patients over 70 years has not been determined. Clinical correlation is essential. Serum or plasma estrogen jammie surement (mass/volume)Ordered By: [facility] Lary Urbina on 10-11-2023 Estrogen [Mass/Vol] 123 pg/mL . [facility] Comment on above: Prepubertal < 40 Fem davey Cycle: 1-10 Days 16 - 328 11-20 Days 34 - 501 21-30 Days 48 - 350 Post-Menopausal 40 - 244Performed at: BN - [facility] [address] [id number] Director: Juan Le MD, Phone: [phone] Serum or plasma thyroid stim ulating hormone (TSH) measurement (units/volume)Ordered By: [facility] Lary Urbina on 10-11-2023 TSH Qn 2.56 uIU/mL 0.358-3.74 [facility] Serum or plasma urea nitroge n measurement (mass/volume)Ordered By: [facility] Lary Urbina on 10-11-2023 Urea nitrogen [Mass/Vol] 28 mg/dL 7-18 [facility] Thin prep Papanicolaou smear with manual screeningOrdered By: [facility] Lary Urbina on 10-11-2023 Thin prep Papanicolaou smear with manual screening 3.7 g/dL 3.2-5.0 [facility] Thin prep Papanicolaou smear with manual screening 16 U/L 15-37 [facility] Thin prep Papanicolaou smear with manual screening 6 5-15 [facility] Whole blood hemoglobin A1c/t otal hemoglobin ratio (mass fraction)Ordered By: [facility] Lary Urbina on 10-11-2023 HbA1c (Bld) [Mass fraction] 5.3 % 3.8-5.6 [facility] Comment on above: Normal < 5.7 % Predi abetic 5.7 - 6.4 % Diabetic >or= 6.5 % Please note range changes. Vital Signs Date Time Vital Sign Value Performing Clinician Hannyi shante 11-04-2024 11:19-0400 Body height 160.02 cm Lary SELLERS Work Phone: [facility] 11-04-2024 11:15-0400 Body mass index (BMI) [Ratio] 31.9 kg/m2 Lary SELLERS Work Phone: [facility] 11-04-2024 11:15-040 Body weight 81.87 kg Lary SELLERS Work Phone: [facility] 11-04-2024 11:15-0400 Diastolic blood pressure 84 mm[Hg] Lary SELLERS Work Phone: [facility] 11-04-2024 11:15-0400 Systolic blood pressure 122 mm[Hg] Lary Carlitos [employer] Work Phone: [facility] Encounters Encounter Date Encounter Type Care Provider Facility Start: 11-19-2024 End: 11-19-2024 ambulatory Lary Carlitos [employer] Work Phone: [facility] Work Phone: Start: 11-19-2024 End: 11-19-2024 Patient encounter procedure Alliejoanne Burleson [facility] -[facility] Work Phone: Start: 11-19-2024 End: 11-19-2024 ambulatory Allie Burleson NP Facility:[facility] Start: 11-06-2024 ambulatory Jared ORR Facili ty:[facility] Start: 11-04-2024 End: 11-04-2024 Patient encounter procedure Allie Gorham [employer] -[facility] Work Phone: Start: 11-04-2024 End: 11-04-2024 Patient encounter status Allie Burleson [employer] [facility] Start: 11-04-2024 End: 11-04-2024 ambulatory Lary Carlitos [employer] Work Phone: [facility] Work Phone: Start: 09-23-2024 Registered Referred HEALTH RISK ASSE [facility] -Employee Health Start: 09-23-2024 ambulatory Health Risk Assessment Facility:[facility] Start: 03-18-2024 ambulatory Casper Joy Facili ty:[facility] Start: 03-02-2024 End: 03-02-2024 ambulatory Luiz ALVARADO Facility:[facility] [place] Start: 10-17-2023 Patient encounter procedure [facility]Ultrasound, [facility] Work Phone: Start: 10-11-2023 End: 10-11-2023 ambulatory [facility] Work Phone: Start: 10-11-2023 End: 10-11-2023 Patient encounter procedure [facility]Laboratory Work Phone: Procedures Date Procedure Procedure Detail Performing Clinician Start: 11-19-2024 Screening mammography Susan Urbina [employer] Work Phone: Start: 09-23-2024 Serum inorganic phos phate measurement Lary Urbina [employer] Work Phone: Start: 10-17-2023 Transvaginal echography Plan of Treatment Date Care Activity Detail Author MG Breast - bilateral Screening [facility] Immunizations Immunization Date Immunization Notes Care Provider Fa danny 04-16-2024 influenza, seasonal, injectable, preservative free Lary Urbina [employer] Work Phone: [facility] 04-17-2023 influenza, injectabl e, quadrivalent, preservative free [facility] 04-16-2022 influenza, injectabl e, quadrivalent, preservative free [facility] 04-12-2021 [facility] ([facility] 04-04-2021 influenza, injectabl e, quadrivalent, preservative free [facility] 07-06-2020 [facility] ([facility]) [facility] 06-08-2020 [facility] ([facility]) [facility] 04-13-2020 influenza, injectabl e, quadrivalent, preservative free [facility] 04-13-2019 influenza, injectabl e, quadrivalent, preservative free [facility] 04-09-2018 influenza, injectabl e, quadrivalent, preservative free [facility] 03-06-2017 influenza, injectabl e, quadrivalent, preservative free [facility] 03-08-2016 influenza, injectabl e, quadrivalent, preservative free [facility] 04-05-2015 influenza, injectabl e, quadrivalent, preservative free [facility] 03-04-2014 influenza, injectabl e, quadrivalent, preservative free [facility] 06-18-2013 Influenza virus vaccine [facility] Payers Date Payer Category Payer Self-pay 2024 Unknown [id number] 2000 Unknown [employer] [id number] Unknown [id number] 2.16.8 [id number] Unknown [id number] 2.16.8 [id number] Unknown [id number] 2.16.8 [id number] Unknown [id number] 2.16.8 [id number] Unknown [id number] 2.16.8 [id number] Unknown [id number] 2.16.8 [id number] Social History Date Type Detail Facility Start: 1970 Female [facility] Work Phone: Start: 10-31-2023 Tobacco smoking stat [email or web address]IS Never smoked tobacco (finding) [facility] NEGATED: Highlighted row No Social History Information Available No Social History Information Available [facility] Work Phone: Evaluation note 11-04-2024 Note Date & Type Note Facility 11-04-2024 Evaluation note Diagnosis Onset Date Resolution Encounter for routine gynecological examination noneactive November 04, 2024 11:11am [facility] Work Phone: Evaluation note Note Date & Type Note Facility Evaluation note No assessment information availa [facility] Work Phone: Evaluation note Note Date & Type Note Facility Evaluation note Diagnosis Onset Date Resolution Encounter for routine gynecological examination noneactive November 04, 2024 11:11am [facility] Work Phone: Reason for referral (narrative) Note Date & Type Note Facility Reason for referral (narrative) No reason for referral information available [facility] Work Phone: Chief Complaint and Reason for Visit Chief Complaint POST MEHNAZ BLEEDING Chief Complaint Admit Date EMPLOYEE [facility] [employer] September 23, 2024 6:2 9am Annual ([employer]) November 04, 2024 11:11 am Reason for Visit Admit Date Encounter for routine gynecological exam ination November 04, 2024 11:11am Chief Complaint Admit Date EMPLOYEE [facility] September 23, 2024 6:2 9am Annual ([employer]) November 04, 2024 11:11 am screen for breast cancer November 19, 2024 1:00pm Summary Purpose Family History No Family History Records Found Advance Directives No Advanced Directives Records Found Additional Source Comments Care Teams (unrecognized sec tion and content) Team Status: Active Member Role Status Dates Lary ORR, [employer] Primary Care Provider Activ e Team Status: Active Member Role Status Dates Lary ORR, [employer] Primary Care Provider Activ e Start: September 23, 2024 Health Risk Assessment Attending Provider Active Start: September 23, 2024 Health Risk Assessment Referring Provider Active Start: September 23, 2024 Team Status: Inactive Member Role Status Dates Lary ORR, [employer] Primary Care Provider Activ e Start: November 04, 2024 End: November 04, 2024 Lary ORR, [employer] Referring Provider Active Start: November 04, 2024 End: November 04, 2024 Allie Burleson NP [employer] Attending Provider Active Start: November 04, 2024 End: November 04, 2024 Team Status: Inactive Member Role Status Dates Lary ORR, [employer] Primary Care Provider, Attending Provider, Referring Provider Active Team Status: Active Member Role Status Dates Lary ORR, JOURNEY LINEMAN-C Primary Care Provider, Attending Provider, Referring Provider Active Team Status: Inactive Member Role Status Dates Lary ORR, JOURNEY LINEMAN-C Primary Care Provider Activ e Start: November 19, 2024 End: November 19, 2024 Allie Burleson NP JOURNEY LINEMAN-C Attending Provider Active Start: November 19, 2024 End: November 19, 2024 Allie Burleson NP, JOURNEY LINEMAN-C Referring Provider Active Start: November 19, 2024 End: November 19, 2024 Goals (unrecognized section and content) Goals may be documented in a n alternate sectionGoals may be documented in an alternate sectionGoals may be documented in an alternate section INFORMATION SOURCE (unrecogn ized section and content) DATE CREATED AUTHOR 11/29/2024 [facility] FOR RECORDS PERTAINING TO PATIENTS WHO ARE OR HAVE BEEN ENROLLED IN A CHEMICAL DEPENDENCY/SUBSTANCEABUSE PROGRAM, SOME INFORMATION MAY BE OMITTED. This clinical summary was aggregated from multiple sources. Caution should be exercised in using it in the provision of clinical care. This summary normalizes information from multiple sources, and as a consequence, information in this document may materially change the coding, format and clinical context of patient data. In addition, data may be omitted in some cases. CLINICAL DECISIONS SHOULD BE BASED ON THE PRIMARY CLINICAL RECORDS. [employer] [facility]. provides no warranty or guarantee of the accuracy or completeness of information in this document.
[2025-01-27 07:23] LABS: Hematocrit 40.7 % (37-47); Hemoglobin 13.9 g/dL (12.0-15.0); Immature Granulocytes Count 0.010 X10^3/uL (0.0-0.0); Mean Corp Hgb Conc 34.2 g/dL (32-36); Mean Corpuscular Volume 86.0 fL (81-99); Mean Platelet Vol. 10.3 fl (6.2-12.0); NRBC Flagged by Analyzer 0 % (0-5); Platelet Count 253 K/mm3 (150-450); RBC Distribution Width CV 12.8 % (11.6-14.6); RBC Distribution Width SD 39.9 fl (35.1-43.9); Red Blood Count 4.73 M/mm3 (4.2-5.4); White Blood Count 3.7 K/mm3 (4.4-11.0)
[2025-01-27 07:52] LABS: AST(SGOT) 18 U/L (<=31); Alanine Aminotransfer ALT/SGPT 15 U/L (<=34); Albumin, Serum 4.3 g/dL (3.5-5.0); Alkaline Phosphatase 55 U/L (35-104); Anion Gap 12 (5-15); BUN 13 mg/dL (4-19); BUN/Creat Ratio 18.2 RATIO (10-20); Calcium,Total 9.5 mg/dL (7.6-11.0); Carbon Dioxide 24.2 mmol/L (21.0-32.0); Chloride 105 mmol/L (98-108); Cholesterol 157 mg/dL (<=200); Globulin 2.8 g/dL (2.2-4.2); Glucose 77 mg/dL (70-99); Low Density Lipoprotein Calc. 78 mg/dL; Potassium 3.5 mmol/L (3.3-5.1); Triglycerides 51 mg/dL; Very Low Density Lipoprotein 10 mg/dL (5-40); cholesterol:hdl ratio screen 2.27
[2025-01-27 07:53] LABS: CRP < 3.00 mg/L (0.0-3.0)
[2025-01-28 13:08] LABS: ANTINUCLEAR ANTIBODIES DIRECT Negative (Negative)
== END | disposition home or self-care (01) ==
LOC: LAB 06:33
PROVIDERS: PCP Nurse Practitioner Family
DX: I10 Essential (primary) hypertension (principal); E78.5 Hyperlipidemia, unspecified; R53.83 Other fatigue; Z13.1 Encounter for screening for diabetes mellitus
CPT/HCPCS: 36415; 80053; 80061; 83036; 84443; 85025; 85652; 86038; 86140

== ENCOUNTER → 2025-03-30 | Outpatient (CLI) | payer OTHER, SELFPAY ==
[2025-03-30 15:47] LABS: CRP < 3.00 mg/L (0.0-3.0)
[2025-04-01 14:09] LABS: ANTINUCLEAR ANTIBODIES DIRECT Negative (Negative)
[2025-04-03 06:08] LABS: Dilute Russell Viper Venom 34.3 sec (0.0-47.0); Interpretation Comment: (.); PTT-LA 38.2 sec (0.0-43.5)
== END | disposition home or self-care (01) ==
LOC: VSLAB 12:32
PROVIDERS: PCP Nurse Practitioner Family; Visit Provider Nurse Practitioner Family
DX: M25.50 Pain in unspecified joint (principal)
CPT/HCPCS: 36415; 85652; 86038; 86140; 86431

== ENCOUNTER → 2025-04-08 | Outpatient (CLI) | payer OTHER, SELFPAY ==
[2025-04-12 09:08] LABS: Anti-Chromatin <0.2 AI (0.0-0.9); Anti-Jo <0.2 AI (0.0-0.9); Anti-dsDNA Ab 1 IU/mL (0-9); SJOGREN'S Anti-SS-A test < 0.2 AI (0.0-0.9); SJOGREN'S Anti-SS-B test < 0.2 AI (0.0-0.9)
== END | disposition home or self-care (01) ==
LOC: LAB.FUTURE 16:00 → LAB 16:01
PROVIDERS: PCP Nurse Practitioner Family; Referring Provider Nurse Practitioner Family; Visit Provider Nurse Practitioner Family
DX: M25.50 Pain in unspecified joint (principal)
CPT/HCPCS: 86225; 86235

== ENCOUNTER → 2025-05-19 | Outpatient (CLI) | payer OTHER, SELFPAY ==
--- OUTSIDE RECORDS SUMMARY | 2025-05-19 06:37 | XMS RPT_ITS | CCD ---
Author Organization [facility] Care Team Providers Care Regional Extension Service Specialist Name Role Phone ROSARIO SUERO MD Unavailable Carlitos CEMENTING BULK MATERIAL OPERATOR-C, Layr Primary Care Provider Assessment, Health Risk Attending Provider Unava ilable Assessment, Health Risk Referring Provider Unava ilable Carlitos CEMENTING BULK MATERIAL OPERATOR-C, Lary Referring Provider [place] CEMENTING BULK MATERIAL OPERATOR-C, Allie Attending Provider Benjy CEMENTING BULK MATERIAL OPERATOR-C, Allie Referring Provider Carlitos CEMENTING BULK MATERIAL OPERATOR-C, Lary Primary Care Provider Beam CEMENTING BULK MATERIAL OPERATOR-C, Zebulun Attending Provider Beam CEMENTING BULK MATERIAL OPERATOR-C, Zebulun Referring Provider Carlitos CEMENTING BULK MATERIAL OPERATOR-C, Lary Primary Care Physician [phone] Benjy CEMENTING BULK MATERIAL OPERATOR-CAllie Attending Physician Beam CEMENTING BULK MATERIAL OPERATOR-C, Zebujuann Attending Physician Ann Retana Attending Physician Unavailable Dr. Ramses Jimenez MD Attending Physician Dr. Ramses Jimenez MD Referring Provider Carlitos CEMENTING BULK MATERIAL OPERATOR-C, Lary Referring Provider Carlitos VSC, Lary Primary Care Ramses Sen Attending Unavailable Carlitos VSC, Lary Referring Unavailabl e Carlitos VSC, Lary Primary Care UnavailAnn Roca Attending Unavailable Allie Burleson Attending Unavailable Carlitos VSC, Lary Primary Care Unavailabl e Carlitos VSC, Lary Referring UnavailRamses Lamas Attending Unavailable Carlitos VSC, Lary Primary Care Unavailabl e Beam VSC, Zebulun Referring Unavailable [facility], [facility] Primary Care Unavailabl e Allie Burleson Attending Unavailable Allie Burleson Referring Unavailable Assessment, Health Risk Attending Unavaila ble Assessment, Health Risk Referring Unavaila ble [facility], [facility] Unavailabl e Prah, Ramses Attending Unavailable Prah, Ramses Referring Unavailable [facility], [facility] Unavailabl e Carlitos [facility], [facility] Primary Care Unavailabl e Carlitos VSC, Lary Attending Unavailabl e Carlitos [facility], [facility] Primary Care Unavailabl e Carlitos C, Lary Attending Unavailabl e [facility], Lary Referring Unavailabl e Beam C, Zebulun Referring Unavailable [facility], [facility] Unavailabl e Beam [facility], Zebulun Attending Unavailable Medications Current Medications Medication Drug Class(es) Dates Sig (Normalized) Sig (Original) amLODIPine 5 mg oral tablet (7 sources) Dihydropyridine Calcium Channel Jerald Start: 03-01-2025 take 1 tablet by mouth once daily Amlodipine (Norvasc) 5 mg tablet Active 5 mg PO DAILY March 01, 2025 12:00am High Blood Pressure Complies with drug therapy Start: 10-31-2023 End: 03-01-2025 take 1 tablet by mouth once daily Amlodipine (Norvasc) 2.5 mg tablet Discontinued 2.5 mg PO DAILY October 31, 2023 12:00am March 01, 2025 10:59am busPIRone hydrochloride 5 mg oral tablet (2 sources) Start: 02-11-2025 take 1 tablet by mouth twice daily Buspirone 5 mg tablet Active 5 mg PO TWICE A DAY February 11, 2025 12:00am Complies with drug therapy Vit No.199-Irtp-Jxlog (Classic ) 28 mg iron- 800 mcg tablet (1 source) Start: 03-16-2025 Vit No.870-Jtca-Blwss (Classic ) 28 mg iron- 800 mcg tablet Active {tbl} PO DAILY March 16, 2025 12:00am Complies with drug therapy rosuvastatin calcium 5 mg oral tablet (5 sources) HMG-CoA Reductase Inhibitor Start: 11-04-2024 take 1 tablet by mouth once daily Rosuvastatin (Crestor) 5 mg tablet Active 5 mg PO DAILY November 04, 2024 12:00am Cholesterol Complies with drug therapy Tirzepatide (2 sources) Start: 03-01-2025 Tirzepatide 15 mg/0.5 mL pen injector Active mg SC March 01, 2025 12:00am Weight loss Complies with drug therapy Start: 03-01-2025 Completed/Discontinued Medications Medication Drug Class(es) Dates Sig (Normalized) Sig (Original) predniSONE 10 mg oral tablet (5 sources) Start: 03-02-2024 End: 11-04-2024 take 4 tablets by mouth once daily, then take 3 tablets by mouth once daily, then take 2 tablets by mouth once daily, then take 1 tablet by mouth once daily Prednisone 10 mg tablet Discontinued 10 mg PO DAILY 30 0 March 02, 2024 12:00am November 04, 2024 11:19am 4 tablets daily x3 days, then 3 tablets daily x3 days, then 2 tablets daily x3 days, then 1 tablet daily x3 days Semaglutide (Weight Loss) (5 sources) Start: 11-04-2024 End: 03-01-2025 Semaglutide (Weight Loss) 2.4 mg/0.75 mL pen injector Discontinued mg SC November 04, 2024 12:00am March 01, 2025 10:59am Weight loss Start: 11-04-2024 Semaglutide (W eight Loss) 2.4 mg/0.75 mL pen injector Active mg SC November 04, 2024 12:00am Weight loss Start: 11-04-2024 Semaglutide (W eight Loss) 2.4 mg/0.75 mL pen injector Active mg SC November 04, 2024 12:00am Problems Active Problems Problem Classification Problem Date Documented Date Episodic/Chronic Diseases of white blood cells (7 sources) Leukopenia; Translations: [Decreased white blood cell count, unspecified] Onset: 03-16-2025 03-01-2025 Chronic Comment on above: Discussed causes of leukopenia and evaluation, patient wants to proceed with evaluation. Flow cytometry is no rmal. Essential hypertension (6 sources) Hypertensive disorder; Translations: [Essential (primary) hypertension] Onset: 02-03-2025 10-31-2023 Chronic Immunizations and screening for infectious disease (1 source) Patient encounter status; Translations: [Encounter for screening for COVID-19] 01-16-2022 Episodic Menopausal disorders (5 sources) Postmenopausal bleeding; Translations: [Postmenopausal bleeding] 10-31-2023 Chronic Nutritional deficiencies (3 sources) Folic acid level - finding; Translations: [Deficiency of other specified B group vitamins] Onset: 03-16-2025 03-16-2025 Episodic Other non-traumatic joint disorders (1 source) Pain in unspecified joint; Translations: [Pain in unspecified joint] Onset: 04-19-2025 Episodic Other nutritional; endocrine; and metabolic disorders (5 sources) Obesity; Translations: [Obesity, unspecified] 10-31-2023 Chronic Comment on above: Has lost 100# with d iet and exercise Other screening for suspected conditions (not mental disorders or infectious disease) (4 sources) Other specified abnormal findings of blood chemistry; Translations: [High serum vitamin B12] Onset: 11-25-2024 03-16-2025 Episodic Poisoning by nonmedicinal substances (5 sources) Allergic reaction to wasp sting; Translations: [Toxic effect of venom of wasps, accidental (unintentional), initial encounter] 03-02-2024 Episodic Past or Other Problems Problem Classification Problem Date Documented Da te Episodic/Chronic NEGATED: Highlighted row has been ruled out!Unclassified (1 source) No Problem Information Available Results Test Name Value Interpretation Reference Range Facility [facility] Comprehensive Panelon ANTI-DNA (DS)AB 1 IU/mL Normal 0-9 [facility] Comment on above: Result Comment: Nega tive <5 Equivocal 5 - 9 Positive >9 Performed By: #### L 3099.5440 ####[facility] [address] [place], [place], [id number] ANTI-SS-A < 0.2 Normal 0.0-0.9 [facility] Comment on above: Performed By: #### L 310.5440 ####[facility] [address] [place], [place], [id number] ANTI-SS-B < 0.2 Normal 0.0-0.9 [facility] Comment on above: Performed By: #### L 3099.5440 ####[facility] [address] [place], [address] Lupus Anticoagulant Compon 1 - aPTT Coag (Bld) [Time] 38.2 s Normal 0.0-43.5 [facility] Comment on above: Performed By: #### L 505.7010, L501.6710, L3100.5475, L101.9900, L4500.0100 ####[facility] [address] [place], [address] DILUTE PT (dPT) 30.9 sec Normal 0.0-47.6 [facility] Comment on above: Performed By: #### L 505.7010, L501.6710, L3100.5475, L101.9900, L4500.0100 ####[facility] [address] [place], [address] dPT Conf. Ratio 1.10 Ratio Normal 0.00-1.34 [facility] Comment on above: Performed By: #### L 505.7010, L501.6710, L3100.5475, L101.9900, L4500.0100 ####[facility] [address] [place], [address] DRVVT 34.3 sec Normal 0.0-47.0 [facility] Comment on above: Performed By: #### L 505.7010, L501.6710, L3100.5475, L101.9900, L4500.0100 ####[facility] [address] [place], [address] Interpretation Comment: Normal . [facility] Comment on above: Result Comment: No l upus anticoagulant was detected. Performed at: - [address] [id number] [employer]: Juan Le MD, Phone: [phone] Performed By: #### L 505.7010, L501.6710, L3100.5475, L101.9900, L4500.0100 ####[facility] [address] [place], [place], [id number] THROMBIN TIME 18.4 sec Normal 0.0-23.0 [facility] Comment on above: Performed By: #### L 505.7010, L501.6710, L3100.5475, L101.9900, L4500.0100 ####[facility] [address] [place], [place], [phone] ANTINUCLEAR ANTIBODIES DIREC Ton 04-01-2025 MCKENZIE,DIRECT Negative Normal Negative [facility] Comment on above: Result Comment: Perf ormed at: [facility] [address] [id number] [employer]: Kobe Gallegos PhD, Phone: [phone] Performed By: #### L 505.7010, L501.6710, L3100.5475, L101.9900, L4500.0100 ####[facility] [address] [place], [address] CRPon 03-30-2025 C-REACTIVE PROT < 3.00 Normal 0.0-3.0 [facility] Comment on above: Performed By: #### L 505.7010, L501.6710, L3100.5475, L101.9900, L4500.0100 ####[facility] [address] [place], [place], [id number] Erythrocyte Sed Rateon 03-30 SED RATE 5 mm/hr Normal 0-30 [facility] Comment on above: Performed By: #### L 505.7010, L501.6710, L3100.5475, L101.9900, L4500.0100 ####[facility] [address] [place], [place], [phone] Rheumatoid Factoron 03-30-20 25 RHEUMATOID FAC < 10.0 Normal <15 [facility] Comment on above: Performed By: #### L 505.7010, L501.6710, L3100.5475, L101.9900, L4500.0100 ####[facility] [address] [place], [address] Oncology Visit Reporton Oncology Visit Report [facility] [address] [place] [address] OFFICE VISIT Date of Service: 03/16/25 1526 MR#: [id number] Acct: [id number] Name: JENNIFER DYKES Rep #: [id number] 1 : 1970 From: Ramses Jimenez MD Age/Sex: 55/F Location: [facility] Status: Signed HPI Subjective Date of Service 03/16/25 Chief Complaint F/u for Leukopenia. History of Present Illness 55-year-old woman was found to have leukopenia and referred for further evaluation. She is on Tizepatide for weight loss and low carbohydrate diet. Before that she was on semaglutide. Had blood work and comes for follow up. She denies fever or night sweats, nausea or vomiting. [facility] Medical History VINCENZO (generalized anxiety disorder) Fatigue Hyperlipidemia Neutropenia Leukopenia Allergic reaction to wasp sting Family History Mother Hypertension High cholesterol Uncle Cancer Lung cancer Social History adopted: No household members: spouse [...] Yes additional social history: - Michael- Retired Intake Vital Signs 03/01/25 10:52 03/16/25 15:26 Height 5 ft 3 in 5 ft 3 in Weight: 71.214 kg BMI 27.8 BP 115/77 Blood Pressure Location Lt brachial Position Sitting Respiration 18 Pulse 66 Pulse Source Monitor Temp 98.6 F Temperature Source Temporal Artery Pulse Oximetry (%) 100 Oxygen Delivery Method room air Intake Accompanied by: Self Is patient in pain?: Yes (left hip) Pain scale (1-10): 2 Allergies No Known Allergies Allergy (Verified 03/16/25 15:34) Medications ???Medication ???Instructions ???Recorded ???Confirmed ???Type rosuvastatin 5 mg tablet (Crestor) 5 mg PO DAILY Cholesterol 03/16/25 History buspirone 5 mg tablet 5 mg PO BID 02/11/25 03/16/25 Hist ory amlodipine 5 mg tablet (Norvasc) 5 mg PO DAILY High Blood Pressure 03/01/25 03/16/25 History tirzepatide 15 mg/0.5 mL mg subcut Weight loss 03/01/2501/01 History subcutaneous pen injector vits no.126-ferrous fum tab PO DAILY 03/16/25 03/16/25 His tory 28 mg iron-folic acid 800 mcg tablet (Classic ) Central Venous Access Central Venous Access: No Laboratory Tests 03/01/25 11:58 WBC 3.5 L Hgb 13.6 Hct 39.4 Plt Count 265 Absolute Neuts (auto) 1.3 L Absolute Lymphs (auto) 1.80 ESR 10 Sodium 138 Potassium 3.7 Chloride 103 Carbon Dioxide 21.6 BUN 12 Creatinine 0.70 Glucose 77 Calcium 9.4 Iron 71 Iron Saturation 26.7 Ferritin 380 H Total Bilirubin 0.43 AST 16 ALT 14 Alkaline Phosphatase 58 Lactate Dehydrogenase 176 C-React Prot Ext Range < 3.00 Total Protein 7.4 Albumin 4.5 Globulin 2.9 Vitamin B12 > 4000 H Serum Folate 3.85 L 03/01/2025 Flow cytometry reviewed, Test Ordered: [id number] Flow panel: Leukemia/Lymphoma Flow Interpretation Comment -Y Reference Range: No significant immunophenotypic abnormality detected. Clinical Information Comment -Y Exam Physical Exam Const alert, oriented x3 and no apparent distress Coding Level of Care Code Off vis,est,level 3 Exam Problem Focused Diagnoses Neutropenia, unspecified type D70.9 Leukopenia type: neutropenia Neutropenia type: unspecified High serum vitamin B12 R79.89 Low folate E53.8 Assessment and Plan Assessment and Plan (1) Leukopenia: Status: Chronic Qualifiers: Leukopenia type: neutropenia Neutropenia type: unspecified Qualified Code(s): D70.9 - Neutropenia, unspecified Comment: Flow cytometry is normal. Plan: To do observation. Start Folic acid. (2) High serum vitamin B12: Status: Acute Plan: To hold Vitamin B12. (3) Low folate: Status: Acute Plan: Increase Folic acid intake. Plan Details Follow Up: 2 Months 03/16/25 1603 Date Ramses Villeda Signature: Date (if applicable) CC: C CEMENTING BULK MATERIAL OPERATOR-C Lary [place] Normal [facility] L3410.9992on 03-04-2025 [facility] Misc. COMMENT Normal . [facility] Comment on above: Order Comment: [id number] 0FLOW CYTOMETRY - SOD HEP - RF Result Comment: Test Ordered: [id number] Flow panel: Leukemia/Lymphoma Flow Interpretation Comment -Y Reference Range: . No significant immunophenotypic abnormality detected. Clinical Information Comment -Y Reference Range: . A recent CBC was not available for review at the time this report was prepared. Specimen Type Comment -Y Reference Range: . Peripheral blood Assessment of Leukocytes Comment -Y Reference Range: . No monoclonal B cell population is detected. kappa:lambda ratio 1.4 There is no loss of, or aberrant expression of, the fletcher T cell antigens to suggest a neoplastic T cell process. CD4:CD8 ratio 2.9 A small population (7% of T cells) of double positive (CD4+/CD8+) T cells is detected. Double positive T cells have been described in association with chronic viral infections, autoimmune disorders, chronic inflammatory disorders, and immunodeficiency states. No circulating blasts are detected. There is no immunophenotypic evidence of abnormal myeloid maturation. Analysis of the leukocyte population shows: granulocytes 52%, monocytes 4%, lymphocytes 44%, blasts <0.1%, B cells 5%, T cells 36%, NK cells 3% Viability Comment -Y Reference Range: . 91% Analysis and Gating Strategy Comment -Y Reference Range: . 8 color analysis with CD45/SSC gating Technical-Analysis performed at [facility], [employer], [address], [facility] [address], Director: Azeem Heller [facility], Phenotype Chart Comment -Y Reference Range: . CD2 Normal CD3 Normal CD4 Normal CD5 Normal CD7 Normal CD8 Normal CD10 Normal CD11b Normal CD13 Normal CD14 Normal CD16 Normal CD19 Normal CD20 Normal CD33 Normal CD34 Normal CD38 Normal CD45 Normal CD56 Normal CD57 Normal CD64 Normal CD117 Normal HLA-DR Normal KAPPA Normal LAMBDA Normal Resulting Path Name Comment -Y Reference Range: . June Antonio M.D. Comment: Comment TG Reference Range: . Each antibody in this assay was utilized to assess for potential abnormalities of studied cell populations or to characterize identified abnormalities. This test was developed and its performance characteristics determined by [facility]. It has not been cleared or approved by the U.S. Food and Drug Administration. The FDA has determined that such clearance or approval is not necessary. This test is used for clinical purposes. It should not be regarded as investigational or for research. Performed at: -Y - [facility] [address] [place], [place] [id number] [employer]: Azeem Heller [facility], Phone: [phone] Performed at: - [facility] [address] [place], [place] [id number] [employer]: Azeem Heller [facility], Phone: [phone] Performed at: [facility] [address] [id number] [employer]: Kobe Gallegos PhD, Phone: [phone] Performed By: #### L 3410.9992, L501.6710, L500.4050, L101.9900, L504.2610, L506.0200, L3300.9900, L503.6550, L503.6030, L3300.0100, L100.0100, L503.0106 ####[facility] [address] [place], [place], [id number] Copper, Serum or Plasmaon COPPER, SERUM 117 ug/dL Normal 80-158 [facility] Comment on above: Order Comment: Test( s) [id number]-[id number], Serum or Plasmawas developed and its performance characteristicsdetermined by [facility]. It has not been cleared or approvedby the Food and Drug Administration. Result Comment: Dete ction Limit = 5 Performed By: #### L 3410.9992, L501.6710, L500.4050, L101.9900, L504.2610, L506.0200, L3300.9900, L503.6550, L503.6030, L3300.0100, L100.0100, L503.0106 ####[facility] [address] [place], [place], [phone] Zinc, Plasma or Serumon 02-09 ZINC,PLASMA/SER 81 ug/dL Normal 44-115 [facility] Comment on above: Order Comment: Test( s) [id number], Serum or Plasmawas developed and its performance characteristicsdetermined by [facility]. It has not been cleared or approvedby the Food and Drug Administration. Result Comment: Dete ction Limit = 5 Performed at: [address] [id number] [employer]: Juan Le MD, Phone: [phone] Performed By: #### L 3410.9992, L501.6710, L500.4050, L101.9900, L504.2610, L506.0200, L3300.9900, L503.6550, L503.6030, L3300.0100, L100.0100, L503.0106 ####[facility] [address] [place], [place], [phone] Absolute lymphocyte countOrd ered By: Ramses Jimenez on 03-01-2025 Lymphocytes Auto (Unsp spec) [#/Vol] 1.80 10*3/uL 0.83-4.51 [facility] Absolute neutrophil countOrd ered By: Ramses [facility] on 03-01-2025 Neutrophils (Bld) [#/Vol] 1.3 10*3/uL Low 2.0-7.7 [facility] Anion gap in Serum or Plasma Ordered By: Ramses Jimenez on 03-01-2025 Anion gap [Moles/Vol] 13 mmol/L 5-15 [facility] Automated lymphocyte count a s percentage of total leukocytesOrdered By: Ramses Barbara on 03-01-2025 Lymphocytes/100 WBC Auto (Unsp spec) 52.2 % High 19-41 [facility] BUN/creatinine ratioOrdered By: [facility] on 03-01-2025 Urea nitrogen/Creatinine [Mass ratio] 17.4 mg/mg 10-20 [facility] Basophil percentageOrdered B y: Ramses [facility] on 03-01-2025 Basophils/100 WBC (Bld) 1.7 % High 0-1 [facility] Bilirubin, totalOrdered By: Ramses Jimenez on 03-01-2025 Bilirubin [Mass/Vol] 0.43 mg/dL 0.00-1.30 [facility] CBC W/Diff, Automatedon 02-09 Absolute Lymph 1.80 X10 3/uL Normal 0.83-4.51 [facility] Comment on above: Performed By: #### L 3410.9992, L501.6710, L500.4050, L101.9900, L504.2610, L506.0200, L3300.9900, L503.6550, L503.6030, L3300.0100, L100.0100, L503.0106 ####[facility] [address] [place], [place], [phone] Absolute Neut 1.3 X10 3/uL Low 2.0-7.7 [facility] Comment on above: Performed By: #### L 3410.9992, L501.6710, L500.4050, L101.9900, L504.2610, L506.0200, L3300.9900, L503.6550, L503.6030, L3300.0100, L100.0100, L503.0106 ####[facility] [address] [place], [place], [phone] Basophils/100 WBC (Bld) 1.7 % High 0-1 [facility] Comment on above: Performed By: #### L 3410.9992, L501.6710, L500.4050, L101.9900, L504.2610, L506.0200, L3300.9900, L503.6550, L503.6030, L3300.0100, L100.0100, L503.0106 ####[facility] [address] [place], [address] Eosinophils/100 WBC (Bld) 2.0 % Normal 0-5 [facility] Comment on above: Performed By: #### L 3410.9992, L501.6710, L500.4050, L101.9900, L504.2610, L506.0200, L3300.9900, L503.6550, L503.6030, L3300.0100, L100.0100, L503.0106 ####[facility] [address] [place], [place], [phone] Erythrocyte distribution width (RBC) [Ratio] 13.2 % Normal 11.6-14.6 [facility] Comment on above: Performed By: #### L 3410.9992, L501.6710, L500.4050, L101.9900, L504.2610, L506.0200, L3300.9900, L503.6550, L503.6030, L3300.0100, L100.0100, L503.0106 ####[facility] [address] [place], [phone] Hematocrit (Bld) [Volume fraction] 39.4 % Normal 37-47 [facility] Comment on above: Performed By: #### L 3410.9992, L501.6710, L500.4050, L101.9900, L504.2610, L506.0200, L3300.9900, L503.6550, L503.6030, L3300.0100, L100.0100, L503.0106 ####[facility] [address] [place], [place], [phone]) Hemoglobin (Bld) [Mass/Vol] 13.6 g/dL Normal 12.0-15.0 [facility] Comment on above: Performed By: #### L 3410.9992, L501.6710, L500.4050, L101.9900, L504.2610, L506.0200, L3300.9900, L503.6550, L503.6030, L3300.0100, L100.0100, L503.0106 ####[facility] [address] [place], [place], [phone]) IG% 0.000 Normal 0.0-0.9 [facility] Comment on above: Result Comment: IG% - Immature Granulocytes (promyelocytes, myelocytes and metamyelocytes) > 1% indicates that a LEFT SHIFT is Present. Performed By: #### L 3410.9992, L501.6710, L500.4050, L101.9900, L504.2610, L506.0200, L3300.9900, L503.6550, L503.6030, L3300.0100, L100.0100, L503.0106 ####[facility] [address] [place], [address] Lymphocytes/100 WBC (Bld) 52.2 % High 19-41 [facility] Comment on above: Performed By: #### L 3410.9992, L501.6710, L500.4050, L101.9900, L504.2610, L506.0200, L3300.9900, L503.6550, L503.6030, L3300.0100, L100.0100, L503.0106 ####[facility] [address] [place], [address] MCH (RBC) [Entitic mass] 29.7 pg Normal 27.0-32.0 [facility] [facility] Comment on above: Performed By: #### L 3410.9992, L501.6710, L500.4050, L101.9900, L504.2610, L506.0200, L3300.9900, L503.6550, L503.6030, L3300.0100, L100.0100, L503.0106 ####[facility] [address] [place], [address] MCHC (RBC) [Mass/Vol] 34.5 g/dL Normal 32-36 [facility] Comment on above: Performed By: #### L 3410.9992, L501.6710, L500.4050, L101.9900, L504.2610, L506.0200, L3300.9900, L503.6550, L503.6030, L3300.0100, L100.0100, L503.0106 ####[facility] [address] [place], [address] MCV (RBC) [Entitic vol] 86.0 fL Normal 81-99 [facility] Comment on above: Performed By: #### L 3410.9992, L501.6710, L500.4050, L101.9900, L504.2610, L506.0200, L3300.9900, L503.6550, L503.6030, L3300.0100, L100.0100, L503.0106 ####[facility] [address] [place], [address] Monocytes/100 WBC (Bld) 6.4 % Normal 0-10 [facility] Comment on above: Performed By: #### L 3410.9992, L501.6710, L500.4050, L101.9900, L504.2610, L506.0200, L3300.9900, L503.6550, L503.6030, L3300.0100, L100.0100, L503.0106 ####[facility] [address] [place], [phone]) Neutrophils/100 WBC (Bld) 37.7 % Low 47-70 [facility] Comment on above: Performed By: #### L 3410.9992, L501.6710, L500.4050, L101.9900, L504.2610, L506.0200, L3300.9900, L503.6550, L503.6030, L3300.0100, L100.0100, L503.0106 ####[facility] [address] [place], [address] Nucleated RBC (Bld) [#/Vol] 0 10*3/uL Normal 0-5 [facility] Comment on above: Performed By: #### L 3410.9992, L501.6710, L500.4050, L101.9900, L504.2610, L506.0200, L3300.9900, L503.6550, L503.6030, L3300.0100, L100.0100, L503.0106 ####[facility] [address] [place], [address] Platelet mean volume (Bld) [Entitic vol] 10.3 fL Normal 6.2-12.0 [facility] Comment on above: Performed By: #### L 3410.9992, L501.6710, L500.4050, L101.9900, L504.2610, L506.0200, L3300.9900, L503.6550, L503.6030, L3300.0100, L100.0100, L503.0106 ####[facility] [address] [place], [address] Platelets (Bld) [#/Vol] 265 10*3/uL Normal 150-450 [facility] Comment on above: Performed By: #### L 3410.9992, L501.6710, L500.4050, L101.9900, L504.2610, L506.0200, L3300.9900, L503.6550, L503.6030, L3300.0100, L100.0100, L503.0106 ####[facility] [address] [place], [place], [address](072) RBC (Bld) [#/Vol] 4.58 10*6/uL Normal 4.2-5.4 [facility] Comment on above: Performed By: #### L 3410.9992, L501.6710, L500.4050, L101.9900, L504.2610, L506.0200, L3300.9900, L503.6550, L503.6030, L3300.0100, L100.0100, L503.0106 ####[facility] [address] [place], [place], [phone](445) RDW SD 40.9 fl Normal 35.1-43.9 [facility] Comment on above: Performed By: #### L 3410.9992, L501.6710, L500.4050, L101.9900, L504.2610, L506.0200, L3300.9900, L503.6550, L503.6030, L3300.0100, L100.0100, L503.0106 ####[facility] [address] [place], [place], [phone](985) WBC (Bld) [#/Vol] 3.5 10*3/uL Low 4.4-11.0 [facility] Comment on above: Performed By: #### L 3410.9992, L501.6710, L500.4050, L101.9900, L504.2610, L506.0200, L3300.9900, L503.6550, L503.6030, L3300.0100, L100.0100, L503.0106 ####[facility] [address] [place], [place], [phone] CRPon 03-01-2025 C-REACTIVE PROT < 3.00 Normal 0.0-3.0 [facility] Comment on above: Performed By: #### L 3410.9992, L501.6710, L500.4050, L101.9900, L504.2610, L506.0200, L3300.9900, L503.6550, L503.6030, L3300.0100, L100.0100, L503.0106 ####[facility] [address] [place], [place], [phone] Carbon dioxide, total [Moles /volume] in Central venous bloodOrdered By: Ramses Jimenez on 03-01-2025 CO2 [Moles/Vol] 21.6 mmol/L 21.0-32.0 [facility] Chloride assayOrdered By: Sophie Jimenez on 03-01-2025 Chloride [Moles/Vol] 103 mmol/L 98-108 [facility] Comprehensive Metabolic Prof ilon 03-01-2025 Albumin [Mass/Vol] 4.5 g/dL Normal 3.5-5.0 [facility] Comment on above: Performed By: #### L 3410.9992, L501.6710, L500.4050, L101.9900, L504.2610, L506.0200, L3300.9900, L503.6550, L503.6030, L3300.0100, L100.0100, L503.0106 ####[facility] [address] [place], [address] Albumin/Globulin [Mass ratio] 1.5 {ratio} Normal 0.9-2.4 [facility] Comment on above: Performed By: #### L 3410.9992, L501.6710, L500.4050, L101.9900, L504.2610, L506.0200, L3300.9900, L503.6550, L503.6030, L3300.0100, L100.0100, L503.0106 ####[facility] [address] [place], [address] ALK PHOS 58 U/L Normal 35-104 [facility] Comment on above: Performed By: #### L 3410.9992, L501.6710, L500.4050, L101.9900, L504.2610, L506.0200, L3300.9900, L503.6550, L503.6030, L3300.0100, L100.0100, L503.0106 ####[facility] [address] [place], [address] ALT [Catalytic activity/Vol] 14 U/L Normal <=34 [facility] Comment on above: Performed By: #### L 3410.9992, L501.6710, L500.4050, L101.9900, L504.2610, L506.0200, L3300.9900, L503.6550, L503.6030, L3300.0100, L100.0100, L503.0106 ####[facility] [address] [place], [address] AST [Catalytic activity/Vol] 16 U/L Normal <=31 [facility] Comment on above: Performed By: #### L 3410.9992, L501.6710, L500.4050, L101.9900, L504.2610, L506.0200, L3300.9900, L503.6550, L503.6030, L3300.0100, L100.0100, L503.0106 ####[facility] [address] [place], [address] Bilirubin [Mass/Vol] 0.43 mg/dL Normal 0.00-1.30 [facility] Comment on above: Performed By: #### L 3410.9992, L501.6710, L500.4050, L101.9900, L504.2610, L506.0200, L3300.9900, L503.6550, L503.6030, L3300.0100, L100.0100, L503.0106 ####[facility] [address] [place], [place], [phone] BUN/CRE 17.4 RATIO Normal 10-20 [facility] Comment on above: Performed By: #### L 3410.9992, L501.6710, L500.4050, L101.9900, L504.2610, L506.0200, L3300.9900, L503.6550, L503.6030, L3300.0100, L100.0100, L503.0106 ####[facility] [address] [place], [place], [phone] Calcium [Mass/Vol] 9.4 mg/dL Normal 7.6-11.0 [facility] Comment on above: Performed By: #### L 3410.9992, L501.6710, L500.4050, L101.9900, L504.2610, L506.0200, L3300.9900, L503.6550, L503.6030, L3300.0100, L100.0100, L503.0106 ####[facility] [address] [place], [place], [phone]) Chloride [Moles/Vol] 103 mmol/L Normal 98-108 [facility] Comment on above: Performed By: #### L 3410.9992, L501.6710, L500.4050, L101.9900, L504.2610, L506.0200, L3300.9900, L503.6550, L503.6030, L3300.0100, L100.0100, L503.0106 ####[facility] [address] [place], [address] CO2 [Moles/Vol] 21.6 mmol/L Normal 21.0-32.0 [facility] Comment on above: Performed By: #### L 3410.9992, L501.6710, L500.4050, L101.9900, L504.2610, L506.0200, L3300.9900, L503.6550, L503.6030, L3300.0100, L100.0100, L503.0106 ####[facility] [address] [place], [place], [phone] Creatinine [Mass/Vol] 0.70 mg/dL Normal 0.70-1.20 [facility] Comment on above: Performed By: #### L 3410.9992, L501.6710, L500.4050, L101.9900, L504.2610, L506.0200, L3300.9900, L503.6550, L503.6030, L3300.0100, L100.0100, L503.0106 ####[facility] [address] [place], [address] GAP 13 Normal 5-15 [facility] Comment on above: Performed By: #### L 3410.9992, L501.6710, L500.4050, L101.9900, L504.2610, L506.0200, L3300.9900, L503.6550, L503.6030, L3300.0100, L100.0100, L503.0106 ####[facility] [address] [place], [address] GFR/1.73 sq M.predicted among non-blacks MDRD (S/P/Bld) [Vol rate/Area] 103 mL/min/{1.73_m2} Normal >60 [facility] Comment on above: Result Comment: mL/m in/1.73m2 CKD-EPI Creatinine Equation (2020) Performed By: #### L 3410.9992, L501.6710, L500.4050, L101.9900, L504.2610, L506.0200, L3300.9900, L503.6550, L503.6030, L3300.0100, L100.0100, L503.0106 ####[facility] [address] [place], [address] Globulin (S) [Mass/Vol] 2.9 g/dL Normal 2.2-4.2 [facility] Comment on above: Performed By: #### L 3410.9992, L501.6710, L500.4050, L101.9900, L504.2610, L506.0200, L3300.9900, L503.6550, L503.6030, L3300.0100, L100.0100, L503.0106 ####[facility] [address] [place], [place], [phone] Glucose [Mass/Vol] 77 mg/dL Normal 70-99 [facility] Comment on above: Performed By: #### L 3410.9992, L501.6710, L500.4050, L101.9900, L504.2610, L506.0200, L3300.9900, L503.6550, L503.6030, L3300.0100, L100.0100, L503.0106 ####[facility] [address] [place], [place], [phone] Potassium [Moles/Vol] 3.7 mmol/L Normal 3.3-5.1 [facility] Comment on above: Performed By: #### L 3410.9992, L501.6710, L500.4050, L101.9900, L504.2610, L506.0200, L3300.9900, L503.6550, L503.6030, L3300.0100, L100.0100, L503.0106 ####[facility] [address] [place], [address] Sodium [Moles/Vol] 138 mmol/L Normal 133-145 [facility] Comment on above: Performed By: #### L 3410.9992, L501.6710, L500.4050, L101.9900, L504.2610, L506.0200, L3300.9900, L503.6550, L503.6030, L3300.0100, L100.0100, L503.0106 ####[facility] [address] [place], [place], [phone] T PROT 7.4 g/dL Normal 5.9-8.4 [facility] Comment on above: Performed By: #### L 3410.9992, L501.6710, L500.4050, L101.9900, L504.2610, L506.0200, L3300.9900, L503.6550, L503.6030, L3300.0100, L100.0100, L503.0106 ####[facility] [address] [place], [place], [phone] Urea nitrogen [Mass/Vol] 12 mg/dL Normal 4-19 [facility] Comment on above: Performed By: #### L 3410.9992, L501.6710, L500.4050, L101.9900, L504.2610, L506.0200, L3300.9900, L503.6550, L503.6030, L3300.0100, L100.0100, L503.0106 ####[facility] [address] [place], [address] Eosinophil percentageOrdered By: Ramses Jimenez on 03-01-2025 Eosinophils/100 WBC (Bld) 2.0 % 0-5 [facility] Erythrocyte Sed Rateon 03-01 SED RATE 10 mm/hr Normal 0-30 [facility] Comment on above: Performed By: #### L 3410.9992, L501.6710, L500.4050, L101.9900, L504.2610, L506.0200, L3300.9900, L503.6550, L503.6030, L3300.0100, L100.0100, L503.0106 ####[facility] [address] [place], [place], [phone] Erythrocyte distribution wid th ratioOrdered By: Ramses Jimenez on 03-01-2025 Erythrocyte distribution width (RBC) [Ratio] 13.2 % 11.6-14.6 [facility] Erythrocyte distribution wid th standard deviationOrdered By: Ramses Jimenez on 03-01-2025 Erythrocyte distribution width (RBC) [Ratio] 40.9 fl 35.1-43.9 [facility] Erythrocyte sedimentation ra teOrdered By: Ramses Jimenez on 03-01-2025 ESR (Bld) [Velocity] 10 mm/h 0-30 [facility] Ferritinon 03-01-2025 Ferritin [Mass/Vol] 380 ng/mL High 22-378 [facility] Comment on above: Performed By: #### L 3410.9992, L501.6710, L500.4050, L101.9900, L504.2610, L506.0200, L3300.9900, L503.6550, L503.6030, L3300.0100, L100.0100, L503.0106 ####[facility] [address] [place], [place], [phone] Folate [Moles/volume] in Ser um or PlasmaOrdered By: Ramses Jimenez on 03-01-2025 Folate [Moles/Vol] 3.85 ng/mL Low 4.60-34.80 [facility] Folates,Serum (Folic Acid)on 03-01-2025 FOLATES,SERUM 3.85 ng/mL Low 4.60-34.80 [facility] Comment on above: Order Comment: N Performed By: #### L 3410.9992, L501.6710, L500.4050, L101.9900, L504.2610, L506.0200, L3300.9900, L503.6550, L503.6030, L3300.0100, L100.0100, L503.0106 ####[facility] [address] [place], [place], [phone] Glomerular filtration rate ( GFR) estimation/1.73 sq m using serum, plasma, or whole bOrdered By: Ramses Jimenez on 03-01-2025 GFR/1.73 sq M.predicted among non-blacks MDRD (S/P/Bld) [Vol rate/Area] 103 mL/min/{1.73_m2} >60 [facility] Comment on above: mL/min/1.73m2 CKD-EP I Creatinine Equation (2020) Hematocrit Auto (Bld) [Volum e fraction]Ordered By: Ramses Jimenez on 03-01-2025 Hematocrit (Bld) [Volume fraction] 39.4 % 37-47 [facility] Hemoglobin measurementOrdere d By: Ramses Jimenez on 03-01-2025 Hemoglobin (Bld) [Mass/Vol] 13.6 g/dL 12.0-15.0 [facility] Immature granulocytes/100 WB C Auto (Bld)Ordered By: Ramses Jimenez on 03-01-2025 Immature granulocytes/100 WBC (Bld) 0.000 % 0.0-0.9 [facility] Comment on above: IG% - Immature Granu locytes (promyelocytes, myelocytes and metamyelocytes) > 1% indicates that a LEFT SHIFT is Present. Iron measurement (mass/mass) Ordered By: Ramses Jimenez on 03-01-2025 Iron (Unsp spec) [Mass/Mass] 71 ug/dL 50-170 [facility] Iron+Iron Binding Capacityon 03-01-2025 Iron [Mass/Vol] 71 ug/dL Normal 50-170 [facility] Comment on above: Performed By: #### L 3410.9992, L501.6710, L500.4050, L101.9900, L504.2610, L506.0200, L3300.9900, L503.6550, L503.6030, L3300.0100, L100.0100, L503.0106 ####[facility] [address] [place], [place], [address] UIBC 195 ug/dL Low 228-428 [facility] Comment on above: Performed By: #### L 3410.9992, L501.6710, L500.4050, L101.9900, L504.2610, L506.0200, L3300.9900, L503.6550, L503.6030, L3300.0100, L100.0100, L503.0106 ####[facility] [address] [place], [place], [address] LDHon 03-01-2025 LDH 176 U/L Normal 84-246 [facility] Comment on above: Order Comment: 1 Performed By: #### L 3410.9992, L501.6710, L500.4050, L101.9900, L504.2610, L506.0200, L3300.9900, L503.6550, L503.6030, L3300.0100, L100.0100, L503.0106 ####[facility] [address] [place], [place], [address] Laboratory - Chemistry and C hemistry - challengeOrdered By: Ramses Jimenez on 03-01-2025 AST [Catalytic activity/Vol] 16 U/L <32 [facility] Lactate dehydrogenase (LDH) measurementOrdered By: Ramses Jimenez on 03-01-2025 LDH [Catalytic activity/Vol] 176 U/L 84-246 [facility] MCV (mean corpuscular volume ) determinationOrdered By: Rmases Jimenez on 03-01-2025 MCV (RBC) [Entitic vol] 86.0 fL 81-99 [facility] Mean corpuscular hemoglobin (MCH) determinationOrdered By: Ramses Jimenez on 03-01-2025 MCH (RBC) [Entitic mass] 29.7 pg 27.0-32.0 [facility] Mean corpuscular hemoglobin concentration (MCHC) determinationOrdered By: Ramses Jimenez on 03-01-2025 MCHC (RBC) [Mass/Vol] 34.5 g/dL 32-36 [facility] Mean platelet volume determi nationOrdered By: Ramses Jimenez on 03-01-2025 Platelet mean volume (Bld) [Entitic vol] 10.3 fL 6.2-12.0 [facility] Monocyte percentageOrdered B y: Ramses Jimenez on 03-01-2025 Monocytes/100 WBC (Bld) 6.4 % 0-10 [facility] Neutrophil percentageOrdered By: Ramses Jimenez on 03-01-2025 Neutrophils/100 WBC (Bld) 37.7 % Low 47-70 [facility] No Panel InformationOrdered By: Ramses Jimenez on 03-01-2025 Unsaturated Iron Binding Capacity 195 ug/dL Low 228-428 [facility] Nucleated red blood cell per centageOrdered By: Ramses Jimenez on 03-01-2025 Nucleated RBC/100 WBC (Bld) [Ratio] 0 % 0-5 [facility] Oncology Visit Reporton 02-09 Oncology Visit Report [facility] [address] [place] [address] OFFICE VISIT Date of Service: 03/01/25 1052 MR#: [id number] Acct: [id number] Name: JENNIFER DYKES Rep #: [id number] 4 : 1970 From: Ramses Jimenez MD Age/Sex: 55/F Location: [facility] Status: Signed HPI Subjective Date of Service 03/01/25 Chief Complaint Referred for Leukopenia. History of Present Illness 55-year-old woman was found to have leukopenia and referred for further evaluation. She is on Tizepatide for weight loss and low carbohydrate diet. Before that she was on semaglutide. She denies fever or night sweats, nausea or vomiting. [facility] Medical History (Updated 03/01/25 @ 17:[address] Ramses Jimenez MD) VINCENZO (generalized anxiety disorder) Fatigue Hyperlipidemia Neutropenia Leukopenia Allergic reaction to wasp sting Family History Mother Hypertension High cholesterol Uncle Cancer Lung cancer Social History adopted: No household members: spouse [...] Yes additional social history: - Michael- Retired ROS Constitutional Constitutional: Reports systems reviewed and no addt'l complaints, except as documented Eyes Eyes: Reports systems reviewed and no addt'l complaints, except as documented ENT HEENT: Reports systems reviewed and no addt'l complaints, except as documented Cardiovascular Cardiovascular: Reports systems reviewed and no addt'l complaints, except as documented Respiratory/Chest Respiratory/Chest: Reports systems reviewed and no addt'l complaints, except as documented Gastrointestinal Gastrointestinal: Reports systems reviewed and no addt'l complaints, except as documented Genitourinary Genitourinary: Reports systems reviewed and no addt'l complaints, except as documented Musculoskeletal Musculoskeletal: Reports systems reviewed and no addt'l complaints, except as documented Integumentary Integumentary: Reports systems reviewed and no addt'l complaints, except as documented Neurologic Neurologic: Reports systems reviewed and no addt'l complaints, except as documented Psychiatric Psychiatric: Reports systems reviewed and no addt'l complaints, except as documented Endocrine Endocrinology: Reports systems reviewed and no addt'l complaints, except as documented Hematologic/Lymphatic Hematologic/Lymphatic: Reports systems reviewed and no addt'l complaints, except as documented Allergic/Immunologic Allergic/Immunologic: Reports systems reviewed and no addt'l complaints, except as documented Intake Vital Signs 11/04/24 11:19 03/01/25 10:52 Height 5 ft 3 in 5 ft 3 in Weight: 71.866 kg BMI 28.0 BP 154/93 H Blood Pressure Location Rt brachial Position Sitting Respiration 16 Pulse 63 Pulse Source Monitor Temp 98.2 F Temperature Source Temporal Artery Pulse Oximetry (%) 100 Oxygen Delivery Method room air Intake Is patient in pain?: No Allergies No Known Allergies Allergy (Verified 03/01/25 10:57) Medications ???Medication ???Instructions ???Recorded ???Confirmed ???Type rosuvastatin 5 mg tablet (Crestor) 5 mg PO DAILY Cholesterol 03/01/25 History buspirone 5 mg tablet 5 mg PO BID 02/11/25 03/01/25 Hist ory amlodipine 5 mg tablet (Norvasc) 5 mg PO DAILY High Blood Pressure 03/01/25 03/01/25 History tirzepatide 15 mg/0.5 mL mg subcut Weight loss 03/01/25 History subcutaneous pen injector Exam Physical Exam Const alert, oriented x3 and no apparent distress HEENT normocephalic, external ears normal and external nose normal Eyes EOMs intact bilaterally, conjunctivae normal and no scleral icterus Neck supple Lymph Lymphatic: no lymphadenopathy noted Chest inspection of chest normal and inspection of breasts normal Resp normal respiratory effort and no use of accessory muscles Cardio regular rate, regular rhythm, S1 normal heart sound, S2 normal heart sound and no murmurs GI normal to inspection, nondistended, normoactive bowel sounds no CVA tenderness Back/Spine thoracic and lumbar spine normal to inspection Extremity no clubbing, cyanosis or edema (more content not included)... Normal [facility] Platelet countOrdered By: Sophie Jimenez on 03-01-2025 Platelets (Bld) [#/Vol] 265 10*3/uL 150-450 [facility] Potassium measurement (mass/ volume)Ordered By: Ramses Jimenez on 03-01-2025 Potassium (Unsp spec) [Mass/Vol] 3.7 mmol/L 3.3-5.1 [facility] RBC Auto (Bld) [#/Vol]Ordere d By: Ramses Jimenez on 03-01-2025 RBC (Bld) [#/Vol] 4.58 10*6/uL 4.2-5.4 [facility] Serum creatinine measurement (mass/volume)Ordered By: Ramses Jimenez on 03-01-2025 Creatinine [Mass/Vol] 0.70 mg/dL 0.70-1.20 [facility] Serum globulin measurementOr dered By: Ramses Jimenez on 03-01-2025 Globulin (S) [Mass/Vol] 2.9 g/dL 2.2-4.2 [facility] Serum glucose measurement (m ass/volume)Ordered By: Ramses Jimenez on 03-01-2025 Glucose [Mass/Vol] 77 mg/dL 70-99 [facility] Serum or plasma C reactive p rotein measurement (mass/volume)Ordered By: Ramses Jimenez on 03-01-2025 CRP [Mass/Vol] mg/L 0.0-3.0 [facility] Serum or plasma alanine camara otransferase (ALT) measurementOrdered By: Ramses Jimenez on 03-01-2025 ALT [Catalytic activity/Vol] 14 U/L <35 [facility] Serum or plasma albumin angelina urement (mass/volume)Ordered By: Ramses Jimenez on 03-01-2025 Albumin [Mass/Vol] 4.5 g/dL 3.5-5.0 [facility] Serum or plasma albumin/glob ulin mass ratioOrdered By: Ramses Jimenez on 03-01-2025 Albumin/Globulin [Mass ratio] 1.5 {ratio} 0.9-2.4 [facility] Serum or plasma alkaline dave sphatase measurementOrdered By: Ramses Jimenez on 03-01-2025 ALP [Catalytic activity/Vol] 58 U/L 35-104 [facility] Serum or plasma calcium angelina urement (mass/volume)Ordered By: Ramses Jimenez on 03-01-2025 Calcium [Mass/Vol] 9.4 mg/dL 7.6-11.0 [facility] Serum or plasma ferritin jammie surement (mass/volume)Ordered By: Ramses Jimenez on 03-01-2025 Ferritin [Mass/Vol] 380 ng/mL High 22-378 [facility] Serum or plasma iron saturat ion measurement (mass fraction)Ordered By: Ramses Jimenez on 03-01-2025 Iron saturation [Mass fraction] 26.7 % 13-59 [facility] Serum or plasma urea nitroge n measurement (mass/volume)Ordered By: Ramses Jimenez on 03-01-2025 Urea nitrogen [Mass/Vol] 12 mg/dL 4-19 [facility] Serum or plasma zinc measure ment (mass/volume)Ordered By: Ramses Jimenez on 03-01-2025 Zinc [Mass/Vol] 81 ug/dL 44-115 [facility] Comment on above: Detection Limit = 5P erformed at: [id number] [place], [place] [id number] Director: Juan Le MD, Phone: [phone] Sodium levelOrdered By: Ralf Jimenez on 03-01-2025 Sodium [Moles/Vol] 138 mmol/L 133-145 [facility] Total proteinOrdered By: Ramakrishnaneil Jimenez on 03-01-2025 Protein [Mass/Vol] 7.4 g/dL 5.9-8.4 [facility] Vitamin B12on 03-01-2025 Cobalamin (Vitamin B12) [Mass/Vol] pg/mL High 180-914 [facility] Comment on above: Performed By: #### L 3410.9992, L501.6710, L500.4050, L101.9900, L504.2610, L506.0200, L3300.9900, L503.6550, L503.6030, L3300.0100, L100.0100, L503.0106 ####[facility] [address] [place], [place], [id number] White blood cell (WBC) count Ordered By: Ramses Jimenez on 03-01-2025 WBC (Bld) [#/Vol] 3.5 10*3/uL Low 4.4-11.0 [facility] ANTINUCLEAR ANTIBODIES DIREC Ton 01-28-2025 MCKENZIE,DIRECT Negative Normal Negative [facility] Comment on above: Result Comment: Perf ormed at: - [facility] [address] [id number] [employer]: Kobe Gallegos PhD, Phone: [phone] Performed By: #### L 501.9520, L501.9985, L501.6710, L500.4100, L500.4050, L3100.5475, L101.9900, L100.0100 ####[facility] [address] [place], [place], [id number] Absolute lymphocyte countOrd ered By: Jared Rooney on 01-27-2025 Lymphocytes Auto (Unsp spec) [#/Vol] 2.25 10*3/uL 0.83-4.51 [facility] Absolute neutrophil countOrd ered By: bulun Beam on 01-27-2025 Neutrophils (Bld) [#/Vol] 1.0 10*3/uL Low 2.0-7.7 [facility] Anion gap in Serum or Plasma [facility] 01-27-2025 Anion gap [Moles/Vol] 12 mmol/L 5- [facility] Automated lymphocyte count a s percentage of total leukocytesOrdered By: [facility] on 01-27-2025 Lymphocytes/100 WBC Auto (Unsp spec) 60.5 % High - [facility] BUN/creatinine ratioOrdered By: [facility] on 01-27-2025 Urea nitrogen/Creatinine [Mass ratio] 18.2 mg/mg 03-29 [facility] Basophil percentageOrdered B y: [facility] on 01-27-2025 Basophils/100 WBC (Bld) 1.6 % High 0-1 [facility] Bilirubin, totalOrdered By: [facility] on 01-27-2025 Bilirubin [Mass/Vol] 0.43 mg/dL 0.00-1.30 [facility] CBC W/Diff, Automatedon 01-09 Absolute Lymph 2.25 X10 3/uL Normal 0.83-4.51 [facility] Comment on above: Performed By: #### L 501.9520, L501.9985, L501.6710, L500.4100, L500.4050, L3100.5475, L101.9900, L100.0100 #### [facility] Laboratory [address] [place], [address] Absolute Neut 1.0 X10 3/uL Low 2.0-7.7 [facility] Comment on above: Performed By: #### L 501.9520, L501.9985, L501.6710, L500.4100, L500.4050, L3100.5475, L101.9900, L100.0100 #### [facility] Laboratory [address] [place], [address] Basophils/100 WBC (Bld) 1.6 % High 0-1 [facility] Comment on above: Performed By: #### L 501.9520, L501.9985, L501.6710, L500.4100, L500.4050, L3100.5475, L101.9900, L100.0100 #### [facility] Laboratory [address] [place], [address] Eosinophils/100 WBC (Bld) 3.0 % Normal 0-5 [facility] Comment on above: Performed By: #### L 501.9520, L501.9985, L501.6710, L500.4100, L500.4050, L3100.5475, L101.9900, L100.0100 #### [facility] Laboratory [address] [place], [address] Erythrocyte distribution width (RBC) [Ratio] 12.8 % Normal 11.6-14.6 [facility] Comment on above: Performed By: #### L 501.9520, L501.9985, L501.6710, L500.4100, L500.4050, L3100.5475, L101.9900, L100.0100 #### [facility] Laboratory [address] [place], [address] Hematocrit (Bld) [Volume fraction] 40.7 % Normal 37-47 [facility] Comment on above: Performed By: #### L 501.9520, L501.9985, L501.6710, L500.4100, L500.4050, L3100.5475, L101.9900, L100.0100 #### [facility] Laboratory [address] [place], [address] Hemoglobin (Bld) [Mass/Vol] 13.9 g/dL Normal 12.0-15.0 [facility] Comment on above: Performed By: #### L 501.9520, L501.9985, L501.6710, L500.4100, L500.4050, L3100.5475, L101.9900, L100.0100 #### [facility] Laboratory [address] [place], [address] IG% 0.300 Normal 0.0-0.9 [facility] Comment on above: Result Comment: IG% - Immature Granulocytes (promyelocytes, myelocytes and metamyelocytes) > 1% indicates that a LEFT SHIFT is Present. Performed By: #### L 501.9520, L501.9985, L501.6710, L500.4100, L500.4050, L3100.5475, L101.9900, L100.0100 #### [facility] Laboratory [address] [place] [place], [address] Lymphocytes/100 WBC (Bld) 60.5 % High 19-41 [facility] Comment on above: Performed By: #### L 501.9520, L501.9985, L501.6710, L500.4100, L500.4050, L3100.5475, L101.9900, L100.0100 #### [facility] Laboratory [address] [place], [address] MCH (RBC) [Entitic mass] 29.4 pg Normal 27.0-32.0 [facility] Comment on above: Performed By: #### L 501.9520, L501.9985, L501.6710, L500.4100, L500.4050, L3100.5475, L101.9900, L100.0100 #### [facility] Laboratory [address] [facility] [place], [address] MCHC (RBC) [Mass/Vol] 34.2 g/dL Normal 32-36 [facility] Comment on above: Performed By: #### L 501.9520, L501.9985, L501.6710, L500.4100, L500.4050, L3100.5475, L101.9900, L100.0100 #### [facility] Laboratory [address] [place], [address] MCV (RBC) [Entitic vol] 86.0 fL Normal 81-99 [facility] Comment on above: Performed By: #### L 501.9520, L501.9985, L501.6710, L500.4100, L500.4050, L3100.5475, L101.9900, L100.0100 #### [facility] Laboratory [address] [place], [address] Monocytes/100 WBC (Bld) 7.8 % Normal 0-10 [facility] Comment on above: Performed By: #### L 501.9520, L501.9985, L501.6710, L500.4100, L500.4050, L3100.5475, L101.9900, L100.0100 #### [facility] Laboratory [address] [place], [address] Neutrophils/100 WBC (Bld) 26.8 % Low 47-70 [facility] Comment on above: Performed By: #### L 501.9520, L501.9985, L501.6710, L500.4100, L500.4050, L3100.5475, L101.9900, L100.0100 #### [facility] Laboratory [address] [place], [address] Nucleated RBC (Bld) [#/Vol] 0 10*3/uL Normal 0-5 [facility] Comment on above: Performed By: #### L 501.9520, L501.9985, L501.6710, L500.4100, L500.4050, L3100.5475, L101.9900, L100.0100 #### [facility] Laboratory [address] [place], [address] Platelet mean volume (Bld) [Entitic vol] 10.3 fL Normal 6.2-12.0 [facility] Comment on above: Performed By: #### L 501.9520, L501.9985, L501.6710, L500.4100, L500.4050, L3100.5475, L101.9900, L100.0100 #### [facility] Laboratory [address] [place], [address] Platelets (Bld) [#/Vol] 253 10*3/uL Normal 150-450 [facility] Comment on above: Performed By: #### L 501.9520, L501.9985, L501.6710, L500.4100, L500.4050, L3100.5475, L101.9900, L100.0100 #### [facility] Laboratory [address] [place], [address] RBC (Bld) [#/Vol] 4.73 10*6/uL Normal 4.2-5.4 [facility] Comment on above: Performed By: #### L 501.9520, L501.9985, L501.6710, L500.4100, L500.4050, L3100.5475, L101.9900, L100.0100 #### [facility] Laboratory [address] [place], [address] RDW SD 39.9 fl Normal 35.1-43.9 [facility] Comment on above: Performed By: #### L 501.9520, L501.9985, L501.6710, L500.4100, L500.4050, L3100.5475, L101.9900, L100.0100 #### [facility] Laboratory [address] [place], [address] WBC (Bld) [#/Vol] 3.7 10*3/uL Low 4.4-11.0 [facility] Comment on above: Performed By: #### L 501.9520, L501.9985, L501.6710, L500.4100, L500.4050, L3100.5475, L101.9900, L100.0100 #### [facility] Laboratory [address] [place], [address] CRPon 01-27-2025 C-REACTIVE PROT < 3.00 Normal 0.0-3.0 [facility] Comment on above: Performed By: #### L 501.9520, L501.9985, L501.6710, L500.4100, L500.4050, L3100.5475, L101.9900, L100.0100 #### [facility] Laboratory [address] [place], [address] Calculated very low density lipoprotein (VLDL) cholesterol measurementOrdered By: Abebalun Beam on 01-27-2025 Calculated very low density lipoprotein (VLDL) cholesterol measurement 10 mg/dL 5-40 [facility] Carbon dioxide, total [Moles /volume] in Central venous bloodOrdered By: Abebalun Beam on 01-27-2025 CO2 [Moles/Vol] 24.2 mmol/L 21.0-32.0 [facility] Chloride assayOrdered By: Scott Rooney on 01-27-2025 Chloride [Moles/Vol] 105 mmol/L 98-108 [facility] Comprehensive Metabolic Prof ilon 01-27-2025 Albumin [Mass/Vol] 4.3 g/dL Normal 3.5-5.0 [facility] Comment on above: Performed By: #### L 501.9520, L501.9985, L501.6710, L500.4100, L500.4050, L3100.5475, L101.9900, L100.0100 #### [facility] Laboratory [address] [place], [address] Albumin/Globulin [Mass ratio] 1.5 {ratio} Normal 0.9-2.4 [facility] Comment on above: Performed By: #### L 501.9520, L501.9985, L501.6710, L500.4100, L500.4050, L3100.5475, L101.9900, L100.0100 #### [facility] Laboratory [address] [place], [place], [id number] ALK PHOS 55 U/L Normal 35-104 [facility] Comment on above: Performed By: #### L 501.9520, L501.9985, L501.6710, L500.4100, L500.4050, L3100.5475, L101.9900, L100.0100 #### [facility] Laboratory [address] [place], [address] ALT [Catalytic activity/Vol] 15 U/L Normal <=34 [facility] Comment on above: Performed By: #### L 501.9520, L501.9985, L501.6710, L500.4100, L500.4050, L3100.5475, L101.9900, L100.0100 #### [facility] Laboratory [address] [place], [address] AST [Catalytic activity/Vol] 18 U/L Normal <=31 [facility] Comment on above: Performed By: #### L 501.9520, L501.9985, L501.6710, L500.4100, L500.4050, L3100.5475, L101.9900, L100.0100 #### [facility] Laboratory [address] [place], [place], [id number] Bilirubin [Mass/Vol] 0.43 mg/dL Normal 0.00-1.30 [facility] Comment on above: Performed By: #### L 501.9520, L501.9985, L501.6710, L500.4100, L500.4050, L3100.5475, L101.9900, L100.0100 #### [facility] Laboratory [address] [place], [address] BUN/CRE 18.2 RATIO Normal 10-20 [facility] Comment on above: Performed By: #### L 501.9520, L501.9985, L501.6710, L500.4100, L500.4050, L3100.5475, L101.9900, L100.0100 #### [facility] Laboratory [address] [place], [address] Calcium [Mass/Vol] 9.5 mg/dL Normal 7.6-11.0 [facility] Comment on above: Performed By: #### L 501.9520, L501.9985, L501.6710, L500.4100, L500.4050, L3100.5475, L101.9900, L100.0100 #### [facility] Laboratory [address] [place], [address] Chloride [Moles/Vol] 105 mmol/L Normal 98-108 [facility] Comment on above: Performed By: #### L 501.9520, L501.9985, L501.6710, L500.4100, L500.4050, L3100.5475, L101.9900, L100.0100 #### [facility] [address] [place], [address] CO2 [Moles/Vol] 24.2 mmol/L Normal 21.0-32.0 [facility] Comment on above: Performed By: #### L 501.9520, L501.9985, L501.6710, L500.4100, L500.4050, L3100.5475, L101.9900, L100.0100 #### [facility] Laboratory [address] [place], [address] Creatinine [Mass/Vol] 0.70 mg/dL Normal 0.70-1.20 [facility] Comment on above: Performed By: #### L 501.9520, L501.9985, L501.6710, L500.4100, L500.4050, L3100.5475, L101.9900, L100.0100 #### [facility] Laboratory [address] [place], [place], [phone] (159) GAP 12 Normal 5-15 [facility] Comment on above: Performed By: #### L 501.9520, L501.9985, L501.6710, L500.4100, L500.4050, L3100.5475, L101.9900, L100.0100 #### [facility] Laboratory [address] [place], [place], [phone] (171) GFR/1.73 sq M.predicted among non-blacks MDRD (S/P/Bld) [Vol rate/Area] 102 mL/min/{1.73_m2} Normal >60 [facility] Comment on above: Result Comment: mL/m in/1.73m2 CKD-EPI Creatinine Equation (2020) Performed By: #### L 501.9520, L501.9985, L501.6710, L500.4100, L500.4050, L3100.5475, L101.9900, L100.0100 #### [facility] Laboratory [address] [place], [place], [phone] (524) Globulin (S) [Mass/Vol] 2.8 g/dL Normal 2.2-4.2 [facility] Comment on above: Performed By: #### L 501.9520, L501.9985, L501.6710, L500.4100, L500.4050, L3100.5475, L101.9900, L100.0100 #### [facility] Laboratory [address] [place], [place], [phone] (475) Glucose [Mass/Vol] 77 mg/dL Normal 70-99 [facility] Comment on above: Performed By: #### L 501.9520, L501.9985, L501.6710, L500.4100, L500.4050, L3100.5475, L101.9900, L100.0100 #### [facility] Laboratory [address] [place], [address] Potassium [Moles/Vol] 3.5 mmol/L Normal 3.3-5.1 [facility] Comment on above: Performed By: #### L 501.9520, L501.9985, L501.6710, L500.4100, L500.4050, L3100.5475, L101.9900, L100.0100 #### [facility] Laboratory [address] [place], [address] Sodium [Moles/Vol] 141 mmol/L Normal 133-145 [facility] Comment on above: Performed By: #### L 501.9520, L501.9985, L501.6710, L500.4100, L500.4050, L3100.5475, L101.9900, L100.0100 #### [facility] Laboratory [address] [place], [address] T PROT 7.1 g/dL Normal 5.9-8.4 [facility] Comment on above: Performed By: #### L 501.9520, L501.9985, L501.6710, L500.4100, L500.4050, L3100.5475, L101.9900, L100.0100 #### [facility] Laboratory [address] [place], [address] Urea nitrogen [Mass/Vol] 13 mg/dL Normal 4-19 [facility] Comment on above: Performed By: #### L 501.9520, L501.9985, L501.6710, L500.4100, L500.4050, L3100.5475, L101.9900, L100.0100 #### [facility] Laboratory [address] [place], [address] Eosinophil percentageOrdered By: Jared Beam on 01-27-2025 Eosinophils/100 WBC (Bld) 3.0 % 0-5 [facility] Erythrocyte Sed Rateon 01-27 SED RATE 5 mm/hr Normal 0-30 [facility] Comment on above: Performed By: #### L 501.9520, L501.9985, L501.6710, L500.4100, L500.4050, L3100.5475, L101.9900, L100.0100 #### [facility] Laboratory [address] [place], [place], [id number] Erythrocyte distribution wid th ratioOrdered By: Zebulun Beam on 01-27-2025 Erythrocyte distribution width (RBC) [Ratio] 12.8 % 11.6-14.6 [facility] Erythrocyte distribution wid th standard deviationOrdered By: Zebulun Beam on 01-27-2025 Erythrocyte distribution width (RBC) [Ratio] 39.9 fl 35.1-43.9 [facility] Erythrocyte sedimentation ra teOrdered By: bulun Beam on 01-27-2025 ESR (Bld) [Velocity] 5 mm/h 0-30 [facility] Glomerular filtration rate ( GFR) estimation/1.73 sq m using serum, plasma, or whole bOrdered By: bulun Beam on 01-27-2025 GFR/1.73 sq M.predicted among non-blacks MDRD (S/P/Bld) [Vol rate/Area] 102 mL/min/{1.73_m2} >60 [facility] Comment on above: mL/min/1.73m2 CKD-EP I Creatinine Equation (2020) Hematocrit Auto (Bld) [Volum e fraction]Ordered By: Zebulun Beam on 01-27-2025 Hematocrit (Bld) [Volume fraction] 40.7 % 37-47 [facility] Hemoglobin A1con 01-27-2025 HbA1c (Bld) [Mass fraction] 5.2 % Normal <=5.6 [facility] Comment on above: Result Comment: Norm al < 5.7 % Prediabetic 5.7 - 6.4 % Diabetic >or= 6.5 % Please note range changes. Performed By: #### L 501.9520, L501.9985, L501.6710, L500.4100, L500.4050, L3100.5475, L101.9900, L100.0100 #### [facility] Laboratory [address] [place], [place], [id number] Hemoglobin A1c percentageOrd ered By: Jared Rooney on 01-27-2025 HbA1c (Bld) [Mass fraction] 5.2 % <5.7 [facility] Comment on above: Normal < 5.7 % Predi abetic 5.7 - 6.4 % Diabetic >or= 6.5 % Please note range changes. Hemoglobin measurementOrdere d By: Jared Rooney on 01-27-2025 Hemoglobin (Bld) [Mass/Vol] 13.9 g/dL 12.0-15.0 [facility] Immature granulocytes/100 WB C Auto (Bld)Ordered By: bryn [facility] on 01-27-2025 Immature granulocytes/100 WBC (Bld) 0.300 % 0.0-0.9 [facility] Comment on above: IG% - Immature Granu locytes (promyelocytes, myelocytes and metamyelocytes) > 1% indicates that a LEFT SHIFT is Present. LDL calc ser/plasOrdered By: Jared Rooney on 01-27-2025 Cholesterol in LDL [Mass/Vol] 78 mg/dL [facility] Comment on above: Migqxrabka=916-895 m g/dL & Higher Qttc=353 mg/dL or greaterFriedwald Equation for LDL-C Laboratory - Chemistry and C hemistry - challengeOrdered By: Jared Rooney on 01-27-2025 AST [Catalytic activity/Vol] 18 U/L <32 [facility] Lipid Profileon 01-27-2025 CHOL:HDL 2.27 Normal [facility] Comment on above: Performed By: #### L 501.9520, L501.9985, L501.6710, L500.4100, L500.4050, L3100.5475, L101.9900, L100.0100 #### [facility] Laboratory [address] [place], [address] Cholesterol [Mass/Vol] 157 mg/dL Normal <=200 [facility] Comment on above: Result Comment: Chol esterol level, Desirable <200 mg/dL Borderline high cholesterol 200-239 mg/dL High cholesterol >=240 mg/dL Recommendations of the NCEP Adult Treatment Panel for the following risk-cutoff thresholds for the [place] population. Performed By: #### L 501.9520, L501.9985, L501.6710, L500.4100, L500.4050, L3100.5475, L101.9900, L100.0100 #### [facility] Laboratory [address] [place], [place], [phone] (846) Cholesterol in HDL [Mass/Vol] 69 mg/dL Normal [facility] Comment on above: Result Comment: Promise onal Cholesterol Education Program (NCEP) guidelines: <40 mg/dL: Low HDL-cholesterol (major risk factor for CHD) >= 60 mg/dL: High HDL-cholesterol (negative risk factor for CHD) HDL-cholesterol is affected by a number of factors, e.g. smoking, exercise, hormones, sex and age. Performed By: #### L 501.9520, L501.9985, L501.6710, L500.4100, L500.4050, L3100.5475, L101.9900, L100.0100 #### [facility] Laboratory [address] [place], [address] Cholesterol in LDL [Mass/Vol] 78 mg/dL Normal [facility] Comment on above: Result Comment: Bord alnuaj=099-005 mg/dL Higher Uhjo=877 mg/dL or greater Friedwald Equation for LDL-C Performed By: #### L 501.9520, L501.9985, L501.6710, L500.4100, L500.4050, L3100.5475, L101.9900, L100.0100 #### [facility] Laboratory [address] [place], [place], [phone] (784) Cholesterol in VLDL [Mass/Vol] 10 mg/dL Normal 5-40 [facility] Comment on above: Performed By: #### L 501.9520, L501.9985, L501.6710, L500.4100, L500.4050, L3100.5475, L101.9900, L100.0100 #### [facility] Laboratory [address] [place], [address] Triglyceride [Mass/Vol] 51 mg/dL Normal [facility] Comment on above: Result Comment: The drugs N-Acetylcysteine and Metamizole may falsely depress this assay. Normal range: <150 mg/dL Borderline High: 150-199 mg/dL High: 200-499 mg/dL Very High: >500 mg/dL Performed By: #### L 501.9520, L501.9985, L501.6710, L500.4100, L500.4050, L3100.5475, L101.9900, L100.0100 #### [facility] Laboratory [address] [place], [address] MCV (mean corpuscular volume ) determinationOrdered By: Zebulun Beam on 01-27-2025 MCV (RBC) [Entitic vol] 86.0 fL 81-99 [facility] Mean corpuscular hemoglobin (MCH) determinationOrdered By: Zebulun Beam on 01-27-2025 MCH (RBC) [Entitic mass] 29.4 pg 27.0-32.0 [facility] Mean corpuscular hemoglobin concentration (MCHC) determinationOrdered By: Zebulun Beam on 01-27-2025 MCHC (RBC) [Mass/Vol] 34.2 g/dL 32-36 [facility] Mean platelet volume determi nationOrdered By: Zebulun Beam on 01-27-2025 Platelet mean volume (Bld) [Entitic vol] 10.3 fL 6.2-12.0 [facility] Monocyte percentageOrdered B y: Zebulun Beam on 01-27-2025 Monocytes/100 WBC (Bld) 7.8 % 0-10 [facility] Neutrophil percentageOrdered By: Zebulun Beam on 01-27-2025 Neutrophils/100 WBC (Bld) 26.8 % Low 47-70 [facility] Nucleated red blood cell per centageOrdered By: Jared Rooney on 01-27-2025 Nucleated RBC/100 WBC (Bld) [Ratio] 0 % 0-5 [facility] Platelet countOrdered By: Scott Rooney on 01-27-2025 Platelets (Bld) [#/Vol] 253 10*3/uL 150-450 [facility] Potassium measurement (mass/ volume)Ordered By: Jared Rooney on 01-27-2025 Potassium (Unsp spec) [Mass/Vol] 3.5 mmol/L 3.3-5.1 [facility] RBC Auto (Bld) [#/Vol]Ordere d By: Jared Rooney on 01-27-2025 RBC (Bld) [#/Vol] 4.73 10*6/uL 4.2-5.4 [facility] Screening total cholesterol/ high density lipoprotein (HDL) cholesterol ratioOrdered By: Jared Rooney on 01-27-2025 Cholesterol.total/Chol esterol in HDL [Mass ratio] 2.27 {ratio} [facility] Serum creatinine measurement (mass/volume)Ordered By: Jared Rooney on 01-27-2025 Creatinine [Mass/Vol] 0.70 mg/dL 0.70-1.20 [facility] Serum globulin measurementOr dered By: Jared Rooney on 01-27-2025 Globulin (S) [Mass/Vol] 2.8 g/dL 2.2-4.2 [facility] Serum glucose measurement (m ass/volume)Ordered By: Jared Rooney on 01-27-2025 Glucose [Mass/Vol] 77 mg/dL 70-99 [facility] Serum or plasma C reactive p rotein measurement (mass/volume)Ordered By: Jared Rooney on 01-27-2025 CRP [Mass/Vol] mg/L 0.0-3.0 [facility] [facility] Serum or plasma alanine camara otransferase (ALT) measurementOrdered By: Jared Rooney on 01-27-2025 ALT [Catalytic activity/Vol] 15 U/L <35 [facility] Serum or plasma albumin angelina urement (mass/volume)Ordered By: Jared Rooney on 01-27-2025 Albumin [Mass/Vol] 4.3 g/dL 3.5-5.0 [facility] Serum or plasma albumin/glob ulin mass ratioOrdered By: Jared Beam on 01-27-2025 Albumin/Globulin [Mass ratio] 1.5 {ratio} 0.9-2.4 [facility] Serum or plasma alkaline dave sphatase measurementOrdered By: [facility] island[facility]ice Rooney on 01-27-2025 ALP [Catalytic activity/Vol] 55 U/L 35-104 [facility] Serum or plasma calcium angelina urement (mass/volume)Ordered By: Jared Beam on 01-27-2025 Calcium [Mass/Vol] 9.5 mg/dL 7.6-11.0 [facility] Serum or plasma cholesterol in HDL measurement (mass/volume)Ordered By: Jared Rooney on 01-27-2025 Cholesterol in HDL [Mass/Vol] 69 mg/dL >40 [facility] Comment on above: National Cholesterol Education Program (NCEP) guidelines:<40 mg/dL: Low HDL-cholesterol (major risk factor for CHD)>= 60 mg/dL: High HDL-cholesterol (negative risk factor for CHD)HDL-cholesterol is affected by a number of factors, e.g. smoking, exercise, hormones, sex and age. Serum or plasma cholesterol measurement (mass/volume)Ordered By: Jared Rooney on 01-27-2025 Cholesterol [Mass/Vol] 157 mg/dL <201 [facility] Comment on above: Cholesterol level, D esirable <200 mg/dLBorderline high cholesterol 200-239 mg/dLHigh cholesterol >=240 mg/dLRecommendations of the NCEP Adult Treatment Panel for the following risk-cutoff thresholds for the [place] population. Serum or plasma urea nitroge n measurement (mass/volume)Ordered By: Jared Rooney on 01-27-2025 Urea nitrogen [Mass/Vol] 13 mg/dL 4-19 [facility] Sodium levelOrdered By: Abeba Rooney on 01-27-2025 Sodium [Moles/Vol] 141 mmol/L 133-145 [facility] TSH DL <= 0.005 mIU/L QnOrde red By: Abebalun Beam on 01-27-2025 TSH Qn 3.050 uIU/mL 0.300-4.200 [facility] Thyroid Stim Hormone (TSH)on 01-27-2025 TSH 3.050 uIU/mL Normal 0.300-4.200 [facility] Comment on above: Performed By: #### L 501.9520, L501.9985, L501.6710, L500.4100, L500.4050, L3100.5475, L101.9900, L100.0100 ####[facility] [address] [place], [place], [id number] Total proteinOrdered By: Johnny Rooney on 01-27-2025 Protein [Mass/Vol] 7.1 g/dL 5.9-8.4 [facility] Triglycerides measurementOrd ered By: Jared Rooney on 01-27-2025 Triglyceride [Mass/Vol] 51 mg/dL <199 [facility] Comment on above: The drugs N-Acetylcy steine and Metamizole may falsely depress this assay. 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 Reading Location: [place] [address] CC: CEMENTING BULK MATERIAL OPERATOR-C Allie Burleson; [facility] CEMENTING BULK MATERIAL OPERATOR-C Lary Urbina ~ Mobile Home [employer]orer: Signed [facility] SCRN MAMM (CAD)W/CYNDI BILATo n 11-19-2024 SCRN MAMM (CAD)W/CYNDI BILAT [facility] Imaging Services [address] [place] [id number] SCRN MAMM (CAD)W/CYNDI BILAT MR#: [id number] Acct: [id number] Name: JENNIFER DYKES Rep #: [id number] : 1970 F 54 From: Alton valdivia MD PCP: DOMINGA Pak, CEMENTING BULK MATERIAL OPERATOR-C Status: REG CLI Study: SCRN MAMM (CAD)W/CNYDI BILAT Date of Exam: 11/08 08/04 Exam# [id number] Ordering Dr: Allie Burleson CEMENTING BULK MATERIAL OPERATOR CEMENTING BULK MATERIAL OPERATOR -C EXAM: SCRN MAMM (CAD)W/CYNDI BILAT DATE: 11/19/2024 [...] be mailed to the patient. Reading Location: [place] [address] CC: MARLO Burleson; [facility] MARLO Urbina Mobile Home Laborer: Signed Normal [facility] Office Visit Reporton 11-04-2024 [facility] Office Visit Report [facility] [address], [place] [address] OFFICE VISIT Date of Service: 11/04/24 MR#: [id number] Acct: [id number] Name: JENNIFER DYKES Rep #: [id number] : 1970 Provider: MARLO farfan Age/Sex: 54/F Location: [facility] Status: Signed Intake Vital Signs 03/02/24 11:48 [...] Method room air 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 Normal [facility] Absolute lymphocyte countOrd ered By: HEALTH ASSESSMENT on 09-23-2024 Lymphocytes Auto (Unsp spec) [#/Vol] 2.12 10*3/uL 0.83-4.51 [facility] Absolute neutrophil countOrd ered By: HEALTH ASSESSMENT on 09-23-2024 Neutrophils (Bld) [#/Vol] 1.3 10*3/uL Low 2.0-7.7 [facility] Absolute nucleated red blood cell countOrdered By: HEALTH ASSESSMENT on 09-23-2024 Nucleated RBC (Bld) [#/Vol] 0.00 10*3/uL 0-5 [facility] Anion gap in Serum or Plasma Ordered By: HEALTH ASSESSMENT on 09-23-2024 Anion gap [Moles/Vol] 12 mmol/L 5-15 [facility] BUN/creatinine ratioOrdered By: HEALTH ASSESSMENT on 09-23-2024 Urea nitrogen/Creatinine [Mass ratio] 17.4 mg/mg 10-20 [facility] Bilirubin directOrdered By: HEALTH ASSESSMENT on 09-23-2024 Bilirubin.direct [Mass/Vol] 0.15 mg/dL 0.00-0.30 [facility] Bilirubin, totalOrdered By: HEALTH ASSESSMENT on 09-23-2024 Bilirubin [Mass/Vol] 0.40 mg/dL 0.00-1.30 [facility] CBC, Employeeon 09-23-2024 Absolute Lymph 2.12 X10 3/uL Normal 0.83-4.51 [facility] Comment on above: Performed By: #### L 100.0200, L400.0100, L500.2900 ####[facility] [address] [place], [address] Absolute Neut 1.3 X10 3/uL Low 2.0-7.7 [facility] Comment on above: Performed By: #### L 100.0200, L400.0100, L500.2900 ####[facility] [address] [place], [address] Basophils/100 WBC (Bld) 1.5 % High 0-1 [facility] Comment on above: Performed By: #### L 100.0200, L400.0100, L500.2900 ####[facility] [address] [place], [address] Eosinophils/100 WBC (Bld) 4.5 % Normal 0-5 [facility] Comment on above: Performed By: #### L 100.0200, L400.0100, L500.2900 ####[facility] [address] [place], [address] Erythrocyte distribution width (RBC) [Ratio] 13.5 % Normal 11.6-14.6 [facility] Comment on above: Performed By: #### L 100.0200, L400.0100, L500.2900 ####[facility] [address] [place], [address] Hematocrit (Bld) [Volume fraction] 39.4 % Normal 37-47 [facility] Comment on above: Performed By: #### L 100.0200, L400.0100, L500.2900 ####[facility] [address] [place], [address] Hemoglobin (Bld) [Mass/Vol] 13.6 g/dL Normal 12.0-15.0 [facility] Comment on above: Performed By: #### L 100.0200, L400.0100, L500.2900 ####[facility] [address] [place], [address] Lymphocytes/100 WBC (Bld) 53.5 % High 19-41 [facility] Comment on above: Performed By: #### L 100.0200, L400.0100, L500.2900 ####[facility] [address] [place], [address] MCH (RBC) [Entitic mass] 29.6 pg Normal 27.0-32.0 [facility] Comment on above: Performed By: #### L 100.0200, L400.0100, L500.2900 ####[facility] [address] [place], [address] MCHC (RBC) [Mass/Vol] 34.5 g/dL Normal 32-36 [facility] Comment on above: Performed By: #### L 100.0200, L400.0100, L500.2900 ####[facility] [address] [place], [address] MCV (RBC) [Entitic vol] 85.7 fL Normal 81-99 [facility] Comment on above: Performed By: #### L 100.0200, L400.0100, L500.2900 ####[facility] [address] [place], [address] Monocytes/100 WBC (Bld) 8.1 % Normal 0-10 [facility] Comment on above: Performed By: #### L 100.0200, L400.0100, L500.2900 ####[facility] [address] [place], [address] Neutrophils/100 WBC (Bld) 32.1 % Low 47-70 [facility] Comment on above: Performed By: #### L 100.0200, L400.0100, L500.2900 ####[facility] [address] [place], [address] NRBC # 0.00 10 3/uL Normal 0-5 [facility] Comment on above: Performed By: #### L 100.0200, L400.0100, L500.2900 ####[facility] [address] [place], [address] Nucleated RBC (Bld) [#/Vol] 0 10*3/uL Normal 0-5 [facility] Comment on above: Performed By: #### L 100.0200, L400.0100, L500.2900 ####[facility] [address] [place], [address] Platelet mean volume (Bld) [Entitic vol] 9.5 fL Normal 6.2-12.0 [facility] Comment on above: Performed By: #### L 100.0200, L400.0100, L500.2900 ####[facility] [address] [place], [address] Platelets (Bld) [#/Vol] 288 10*3/uL Normal 150-450 [facility] Comment on above: Performed By: #### L 100.0200, L400.0100, L500.2900 ####[facility] [address] [place], [address] RBC (Bld) [#/Vol] 4.60 10*6/uL Normal 4.2-5.4 [facility] Comment on above: Performed By: #### L 100.0200, L400.0100, L500.2900 ####[facility] [address] [place], [address] RDW SD 42.5 fl Normal 35.1-43.9 [facility] Comment on above: Performed By: #### L 100.0200, L400.0100, L500.2900 ####[facility] [address] [place], [address] WBC (Bld) [#/Vol] 4.0 10*3/uL Low 4.4-11.0 [facility] Comment on above: Performed By: #### L 100.0200, L400.0100, L500.2900 ####[facility] [address] [place], [address] Calculated very low density lipoprotein (VLDL) cholesterol measurementOrdered By: HEALTH ASSESSMENT on 09-23-2024 Calculated very low density lipoprotein (VLDL) cholesterol measurement 12 mg/dL 5-40 [facility] Carbon dioxide, total [Moles /volume] in Central venous bloodOrdered By: HEALTH ASSESSMENT on 09-23-2024 CO2 [Moles/Vol] 21.6 mmol/L 21.0-32.0 [facility] Chloride assayOrdered By: HE ALTH ASSESSMENT on 09-23-2024 Chloride [Moles/Vol] 106 mmol/L 98-108 [facility] Employee Profileon Cholesterol in LDL [Mass/Vol] 191 mg/dL High 0-130 [facility] Comment on above: Performed By: #### L 100.0200, L400.0100, L500.2900 ####[facility] [address] [place], [address] Erythrocyte distribution wid th ratioOrdered By: HEALTH ASSESSMENT on 09-23-2024 Erythrocyte distribution width (RBC) [Ratio] 13.5 % 11.6-14.6 [facility] Erythrocyte distribution wid th standard deviationOrdered By: HEALTH ASSESSMENT on 09-23-2024 Erythrocyte distribution width (RBC) [Ratio] 42.5 fl 35.1-43.9 [facility] Glomerular filtration rate ( GFR) estimation/1.73 sq m using serum, plasma, or whole bOrdered By: HEALTH ASSESSMENT on 09-23-2024 GFR/1.73 sq M.predicted among non-blacks MDRD (S/P/Bld) [Vol rate/Area] 96 mL/min/{1.73_m2} >60 [facility] Comment on above: mL/min/1.73m2 CKD-EP I Creatinine Equation (2020) Hematocrit Auto (Bld) [Volum e fraction]Ordered By: HEALTH ASSESSMENT on 09-23-2024 Hematocrit (Bld) [Volume fraction] 39.4 % 37-47 [facility] Hemoglobin measurementOrdere d By: HEALTH ASSESSMENT on 09-23-2024 Hemoglobin (Bld) [Mass/Vol] 13.6 g/dL 12.0-15.0 [facility] Laboratory - Chemistry and C hemistry - challengeOrdered By: HEALTH ASSESSMENT on 09-23-2024 AST [Catalytic activity/Vol] 15 U/L <32 [facility] Lactate dehydrogenase (LDH) measurementOrdered By: HEALTH ASSESSMENT on 09-23-2024 LDH [Catalytic activity/Vol] 168 U/L 84-246 [facility] Low density lipoprotein (LDL ) cholesterol measurementOrdered By: HEALTH ASSESSMENT on 09-23-2024 Cholesterol in LDL [Mass/Vol] 191 mg/dL High 0-130 [facility] MCV (mean corpuscular volume ) determinationOrdered By: HEALTH ASSESSMENT on 09-23-2024 MCV (RBC) [Entitic vol] 85.7 fL 81-99 [facility] Mean corpuscular hemoglobin (MCH) determinationOrdered By: HEALTH ASSESSMENT on 09-23-2024 MCH (RBC) [Entitic mass] 29.6 pg 27.0-32.0 [facility] Mean corpuscular hemoglobin concentration (MCHC) determinationOrdered By: HEALTH ASSESSMENT on 09-23-2024 MCHC (RBC) [Mass/Vol] 34.5 g/dL 32-36 [facility] Mean platelet volume determi nationOrdered By: HEALTH ASSESSMENT on 09-23-2024 Platelet mean volume (Bld) [Entitic vol] 9.5 fL 6.2-12.0 [facility] Neutrophil percentageOrdered By: HEALTH ASSESSMENT on 09-23-2024 Neutrophils/100 WBC (Bld) 32.1 % Low 47-70 [facility] Nucleated red blood cell per centageOrdered By: HEALTH ASSESSMENT on 09-23-2024 Nucleated RBC/100 WBC (Bld) [Ratio] 0 % 0-5 [facility] Platelet countOrdered By: HE ALTH ASSESSMENT on 09-23-2024 Platelets (Bld) [#/Vol] 288 10*3/uL 150-450 [facility] Potassium measurement (mass/ volume)Ordered By: HEALTH ASSESSMENT on 09-23-2024 Potassium (Unsp spec) [Mass/Vol] 3.4 mmol/L 3.3-5.1 [facility] RBC Auto (Bld) [#/Vol]Ordere d By: HEALTH ASSESSMENT on 09-23-2024 RBC (Bld) [#/Vol] 4.60 10*6/uL 4.2-5.4 [facility] Screening total cholesterol/ high density lipoprotein (HDL) cholesterol ratioOrdered By: HEALTH ASSESSMENT on 09-23-2024 Cholesterol.total/Chol esterol in HDL [Mass ratio] 3.70 {ratio} [facility] Serum creatinine measurement (mass/volume)Ordered By: HEALTH ASSESSMENT on 09-23-2024 Creatinine [Mass/Vol] 0.75 mg/dL 0.70-1.20 [facility] Serum globulin measurementOr dered By: HEALTH ASSESSMENT on 09-23-2024 Globulin (S) [Mass/Vol] 2.8 g/dL 2.2-4.2 [facility] Serum glucose measurement (m ass/volume)Ordered By: HEALTH ASSESSMENT on 09-23-2024 Glucose [Mass/Vol] 91 mg/dL 70-99 [facility] Serum or plasma alanine camara otransferase (ALT) measurementOrdered By: HEALTH ASSESSMENT on 09-23-2024 ALT [Catalytic activity/Vol] 12 U/L <35 [facility] Serum or plasma albumin angelina urement (mass/volume)Ordered By: HEALTH ASSESSMENT on 09-23-2024 Albumin [Mass/Vol] 4.2 g/dL 3.5-5.0 [facility] Serum or plasma albumin/glob ulin mass ratioOrdered By: HEALTH ASSESSMENT on 09-23-2024 Albumin/Globulin [Mass ratio] 1.5 {ratio} 0.9-2.4 [facility] Serum or plasma alkaline dave sphatase measurementOrdered By: HEALTH ASSESSMENT on 09-23-2024 ALP [Catalytic activity/Vol] 45 U/L 35-104 [facility] Serum or plasma calcium angelina urement (mass/volume)Ordered By: HEALTH ASSESSMENT on 09-23-2024 Calcium [Mass/Vol] 9.3 mg/dL 7.6-11.0 [facility] Serum or plasma cholesterol in HDL measurement (mass/volume)Ordered By: HEALTH ASSESSMENT on 09-23-2024 Cholesterol in HDL [Mass/Vol] 75 mg/dL >40 [facility] Comment on above: National Cholesterol Education Program (NCEP) guidelines:<40 mg/dL: Low HDL-cholesterol (major risk factor for CHD)>= 60 mg/dL: High HDL-cholesterol (negative risk factor for CHD)HDL-cholesterol is affected by a number of factors, e.g. smoking, exercise, hormones, sex and age. Serum or plasma cholesterol measurement (mass/volume)Ordered By: HEALTH ASSESSMENT on 09-23-2024 Cholesterol [Mass/Vol] 278 mg/dL High <201 [facility] Comment on above: Cholesterol level, D esirable <200 mg/dLBorderline high cholesterol 200-239 mg/dLHigh cholesterol >=240 mg/dLRecommendations of the NCEP Adult Treatment Panel for the following risk-cutoff thresholds for the [place] population. Serum or plasma urea nitroge n measurement (mass/volume)Ordered By: HEALTH ASSESSMENT on 09-23-2024 Urea nitrogen [Mass/Vol] 13 mg/dL 4-19 [facility] Serum or plasma uric acid me asurement (mass/volume)Ordered By: HEALTH ASSESSMENT on 09-23-2024 Urate [Mass/Vol] 3.4 mg/dL 2.6-6.0 [facility] Comment on above: The drugs N-Acetylcy steine and Metamizole may falsely depress this assay. Sodium levelOrdered By: HEAL TH ASSESSMENT on 09-23-2024 Sodium [Moles/Vol] 139 mmol/L 133-145 [facility] Total proteinOrdered By: HEA [facility] ASSESSMENT on 09-23-2024 Protein [Mass/Vol] 7.0 g/dL 5.9-8.4 [facility] Triglycerides measurementOrd ered By: HEALTH ASSESSMENT on 09-23-2024 Triglyceride [Mass/Vol] 60 mg/dL <199 [facility] Comment on above: The drugs N-Acetylcy steine and Metamizole may falsely depress this assay. Normal range: <150 mg/dLBorderline High: 150-199 mg/dLHigh: 200-499 mg/dLVery High: >500 mg/dL Urinalysis, Employeeon 09-23 BILIRUBIN URINE Normal Negative [facility] Comment on above: Order Comment: Urine , Random Result Comment: REFU SED Performed By: #### L 100.0200, L400.0100, L500.2900 ####[facility] [address] [place], [address] Clarity (U) Normal Clear [facility] Comment on above: Order Comment: Urine , Random Result Comment: REFU SED Performed By: #### L 100.0200, L400.0100, L500.2900 ####[facility] [address] [place], [address] Color (U) Normal Yellow [facility] Comment on above: Order Comment: Urine , Random Result Comment: REFU SED Performed By: #### L 100.0200, L400.0100, L500.2900 ####[facility] [address] [place], [address] GLUCOSE, UR Normal Normal [facility] Comment on above: Order Comment: Urine , Random Result Comment: REFU SED Performed By: #### L 100.0200, L400.0100, L500.2900 ####[facility] [address] [place], [address] KETONE UR Normal Negative [facility] Comment on above: Order Comment: Urine , Random Result Comment: REFU SED Performed By: #### L 100.0200, L400.0100, L500.2900 ####[facility] [address] [place], [address] LEUK ESTERASE Normal Negative [facility] Comment on above: Order Comment: Urine , Random Result Comment: REFU SED Performed By: #### L 100.0200, L400.0100, L500.2900 ####[facility] [address] [place], [address] Nitrite Ql (U) Normal Negative [facility] Comment on above: Order Comment: Urine , Random Result Comment: REFU SED Performed By: #### L 100.0200, L400.0100, L500.2900 ####[facility] [address] [place], [address] OCCULT BLOOD-UR Normal Negative [facility] Comment on above: Order Comment: Urine , Random Result Comment: REFU SED Performed By: #### L 100.0200, L400.0100, L500.2900 ####[facility] [address] [place], [address] pH UR Normal 5.0 - 8.0 [facility] Comment on above: Order Comment: Urine , Random Result Comment: REFU SED Performed By: #### L 100.0200, L400.0100, L500.2900 ####[facility] [address] [place], [address] PROT DIPSTX Normal Negative [facility] Comment on above: Order Comment: Urine , Random Result Comment: REFU SED Performed By: #### L 100.0200, L400.0100, L500.2900 ####[facility] [address] [place], [address] SP.GR. DIPSTX Normal 1.002-1.030 [facility] Comment on above: Order Comment: Urine , Random Result Comment: REFU SED Performed By: #### L 100.0200, L400.0100, L500.2900 ####[facility] [address] [place], [address] UR Preservative Normal [facility] Comment on above: Order Comment: Urine , Random Result Comment: REFU SED Performed By: #### L 100.0200, L400.0100, L500.2900 ####[facility] [address] [place], [address] UROBILI Normal Normal [facility] Comment on above: Order Comment: Urine , Random Result Comment: REFU SED Performed By: #### L 100.0200, L400.0100, L500.2900 ####[facility] [address] [place], [address] White blood cell (WBC) count Ordered By: HEALTH ASSESSMENT on 09-23-2024 WBC (Bld) [#/Vol] 4.0 10*3/uL Low 4.4-11.0 [facility] Absolute lymphocyte countOrd ered By: [facility] Lary Urbina on 10-11-2023 Lymphocytes Auto (Unsp spec) [#/Vol] 2.12 10*3/uL 0.83-4.51 [facility] Automated lymphocyte count a s percentage of total leukocytesOrdered By: [facility] Lary Urbina on 10-11-2023 Lymphocytes/100 WBC Auto (Unsp spec) 41.7 % 19-41 [facility] Basophil percentageOrdered B y: [facility] Lary Urbina on 10-11-2023 Basophils/100 WBC (Bld) 1.2 % 0-1 [facility] Bilirubin [Mass/Vol] 0.30 mg/dL 0.20-1.00 [facility] Comment on above: For patients on eltr ombopag therapy, use of [employer] [place] TBIL is not recommended. Chloride [Moles/Vol] 108 mmol/L 98-107 [facility] Cholesterol [Mass/Vol] 238 mg/dL <200 [facility] Comment on above: <200 mg/dL Desirable 200-240 mg/dL Borderline >240 mg/dL High Risk Eosinophils/100 WBC (Bld) 6.3 % 0-5 [facility] Glucose [Mass/Vol] 91 mg/dL 74-106 [facility] Hemoglobin (Bld) [Mass/Vol] 13.3 g/dL 12.0-15.0 [facility] Monocytes/100 WBC (Bld) 8.1 % 0-10 [facility] Neutrophils (Bld) [#/Vol] 2.2 10*3/uL 2.0-7.7 [facility] Neutrophils/100 WBC (Bld) 42.3 % 47-70 [facility] Potassium [Moles/Vol] 3.8 mmol/L 3.5-5.1 [facility] Protein [Mass/Vol] 7.6 g/dL 6.4-8.2 [facility] Sodium [Moles/Vol] 140 mmol/L 136-145 [facility] Triglyceride [Mass/Vol] 47 mg/dL <199 [facility] Comment on above: The drugs N-Acetylcy steine and Metamizole may falsely depress this assay.Serum Triglycerides Reference Interval Normal <150 mg/dL Borderline high 150 - 199 mg/dL High 200 - 499 mg/dL Very High > or = 500 mg/dL WBC (Bld) [#/Vol] 5.1 10*3/uL 4.4-11.0 [facility] Determination of erythrocyte mean corpuscular volume (MCV)Ordered By: [facility] Lary Urbina on 10-11-2023 MCV (RBC) [Entitic vol] 91.2 fL 81-99 [facility] Erythrocyte distribution wid th ratioOrdered By: [facility] Lary Urbina on 10-11-2023 Erythrocyte distribution width (RBC) [Ratio] 14.8 % 11.6-14.6 [facility] Erythrocyte distribution wid th standard deviationOrdered By: [facility] Lary Urbina on 10-11-2023 Erythrocyte distribution width (RBC) [Entitic vol] 48.4 fL 35.1-43.9 [facility] Hematocrit Auto (Bld) [Volum e fraction]Ordered By: [facility] Lary Urbina on 10-11-2023 Hematocrit (Bld) [Volume fraction] 41.5 % 37-47 [facility] Immature granulocytes/100 WB C Auto (Bld)Ordered By: [facility] Lary Urbina on 10-11-2023 Immature granulocytes/100 WBC (Bld) 0.400 % 0.0-0.9 [facility] Comment on above: IG% - Immature Granu locytes (promyelocytes, myelocytes and metamyelocytes) > 1% indicates that a LEFT SHIFT is Present. Laboratory - Chemistry and C hemistry - challengeOrdered By: [facility] Lary Urbina on 10-11-2023 Albumin/Globulin [Mass ratio] 0.9 {ratio} 0.9-2.4 [facility] ALP [Catalytic activity/Vol] 68 U/L 45-117 [facility] ALT [Catalytic activity/Vol] 33 U/L 13-56 [facility] Cholesterol in HDL [Mass/Vol] 81 mg/dL >40 [facility] Comment on above: The drugs N-Acetylcy steine and Metamizole may falsely depress this assay. Reference Range HDL <40 mg/dL Low HDL Cholesterol HDL >or= 60 mg/dL High HDL Cholesterol Cholesterol in LDL [Mass/Vol] 148 mg/dL 0-130 [facility] CO2 [Moles/Vol] 26.0 mmol/L 21.0-32.0 [facility] Globulin (S) [Mass/Vol] 3.9 g/dL 2.2-4.2 [facility] Urea nitrogen/Creatinine [Mass ratio] 41.1 mg/mg 10-20 [facility] Laboratory - Hematology and Cell countsOrdered By: [facility] Lary Carlitos on 10-11-2023 MCH (RBC) [Entitic mass] 29.2 pg 27.0-32.0 [facility] MCHC (RBC) [Mass/Vol] 32.0 g/dL 32-36 [facility] Nucleated RBC/100 WBC (Bld) [Ratio] 0 % 0-5 [facility] Platelet mean volume (Bld) [Entitic vol] 9.4 fL 6.2-12.0 [facility] Platelets (Bld) [#/Vol] 363 10*3/uL 150-450 [facility] No Panel InformationOrdered By: [facility] Lary Urbina on 10-11-2023 Estimated GFR (MDRD) Amer 116 mL/min >60 [facility] Comment on above: GFR Calc Estimated GFR (MDRD) Non-Af Amer 96 mL/min >60 [facility] Comment on above: Non- GFR Calc Follicle Stimulating Hormone 58.0 mIU/mL [facility] Comment on above: NORMAL REFERENCE RAN [facility] FEMALE FOLLICULAR 2.3 - 12.6 mIU/mL MID-CYCLE PEAK 5.2 - 17.5 mIU/mL LUTEAL 1.7 - 12.9 mIU/mL POST-MENOPAUSAL ON MHT 5.9 - 72.8 mIU/mL NOT ON MHT 12.7 - 132.2 mlU/mL MALE 0.7 - 10.8 mIU/mL Luteinizing Hormone 32.3 mIU/mL [facility] Comment on above: NORMAL REFERENCE RAN [facility] FEMALE FOLLICULAR 1.9 - 26.2 mIU/mL MID-CYCLE PEAK 22.8 - 76.1 mIU/mL LUTEAL 0.6 - 16.6 mIU/mL POST-MENOPAUSAL ON MHT 1.1 - 52.4 mIU/mL NOT ON MHT 8.6 - 61.8 mIU/mL MALE 1.2 - 10.6 mIU/mL VLDL Cholesterol 9 mg/dL 5-40 [facility] RBC Auto (Bld) [#/Vol]Ordere d By: [facility] Lary Urbina on 10-11-2023 RBC (Bld) [#/Vol] 4.55 10*6/uL 4.2-5.4 [facility] Serum or plasma calcium angelina urement (mass/volume)Ordered By: [facility] Lary Urbina on 10-11-2023 Calcium [Mass/Vol] 9.1 mg/dL 8.5-10.1 [facility] Serum or plasma creatinine m easurement (mass/volume)Ordered By: [facility] Lary Urbina on 10-11-2023 Creatinine [Mass/Vol] 0.68 mg/dL 0.55-1.02 [facility] Comment on above: The validity of the calculated GFR & GFRAA in patients over 70 years has not been determined. Clinical correlation is essential. Serum or plasma estrogen jammie surement (mass/volume)Ordered By: [facility] Lary Urbina on 10-11-2023 Estrogen [Mass/Vol] 123 pg/mL . [facility] Comment on above: Prepubertal < 40 Fem davey Cycle: 1-10 Days 16 - 328 11-20 Days 34 - 501 21-30 Days 48 - 350 Post-Menopausal 40 - 244Performed at: [facility] [id number] Director: Juan Le MD, Phone: [phone] Serum or plasma thyroid stim ulating hormone (TSH) measurement (units/volume)Ordered By: [facility] Lary Urbina on 10-11-2023 TSH Qn 2.56 uIU/mL 0.358-3.74 [facility] Serum or plasma urea nitroge n measurement (mass/volume)Ordered By: [facility] Lary Urbina on 10-11-2023 Urea nitrogen [Mass/Vol] 28 mg/dL 7-18 [facility] Thin prep Papanicolaou smear with manual screeningOrdered By: [facility] Lary Urbina on 10-11-2023 Thin prep Papanicolaou smear with manual screening 3.7 g/dL 3.2-5.0 [facility] Thin prep Papanicolaou smear with manual screening 16 U/L 15-37 [facility] Thin prep Papanicolaou smear with manual screening 6 5-15 [facility] Whole blood hemoglobin A1c/t otal hemoglobin ratio (mass fraction)Ordered By: [facility] Lary Urbina on 10-11-2023 HbA1c (Bld) [Mass fraction] 5.3 % 3.8-5.6 [facility] Comment on above: Normal < 5.7 % Predi abetic 5.7 - 6.4 % Diabetic >or= 6.5 % Please note range changes. Vital Signs Date Time Vital Sign Value Performing Clinician Leilani frey 03-16-2025 15:26-0400 Body height 160.02 cm Lary SELLERS Work Phone: [facility] 03-16-2025 15:26-0400 Body mass index (BMI) [Ratio] 27.8 kg/m2 Lary Urbina [employer] Work Phone: [phone])[phone] [place] [address] 03-16-2025 15:26-0400 Body temperature 98.6 [degF] Lary Urbina [employer] Work Phone: [phone])[phone] [place] [address] 03-16-2025 15:26-0400 Body weight 71.21 kg Lary Urbina [employer] Work Phone: 7(085)617-718080 [place] [address] 03-16-2025 15:26-0400 Diastolic blood pressure 77 mm[Hg] Lary Uribna [employer] Work Phone: 4(005)423-455280 [place] [address] 03-16-2025 15:26-0400 Heart rate 66 /min Lary Urbina [employer] Work Phone: 8(124)499-429780 [place] [address] 03-16-2025 15:26-0400 Respiratory rate 18 /min Lary Urbina [employer] Work Phone: 2(908)441-474980 [place] [address] 03-16-2025 15:26-0400 SaO2% (BldA) [Mass fraction] 100 % Lary Urbina [employer] Work Phone: 5(050)417-401880 [place] [address] 03-16-2025 15:26-0400 Systolic blood pressure 115 mm[Hg] Lary Urbina [employer] Work Phone: 2(431)680-255680 [place] [address] 03-01-2025 10:52-0400 Body height 160.02 cm Lary Urbina [employer] Work Phone: 1([phone] [place] [address] 03-01-2025 10:52-0400 Body mass index (BMI) [Ratio] 28 kg/m2 Lary Urbina [employer] Work Phone: 6([phone])807-491580 [place] [address] 03-01-2025 10:52-0400 Body temperature 98.2 [degF] Lary Urbina [employer] Work Phone: 5([phone])[phone] [place] [address] 03-01-2025 10:52-0400 Body weight 71.86 kg Lary Urbina [employer] Work Phone: 7(990)070-959880 [place] [address] 03-01-2025 10:52-0400 Diastolic blood pressure 93 mm[Hg] Lary Urbina [employer] Work Phone: [facility] 03-01-2025 10:52-0400 Heart rate 63 /min Lary Urbina [employer] Work Phone: [facility] 03-01-2025 10:52-0400 Respiratory rate 16 /min Lary Urbina [employer] Work Phone: [facility] 03-01-2025 10:52-0400 SaO2% (BldA) [Mass fraction] 100 % Lary Urbina [employer] Work Phone: [facility] 03-01-2025 10:52-0400 Systolic blood pressure 154 mm[Hg] Lary Urbina [employer] Work Phone: [facility] 11-04-2024 11:19-0400 Body height 160.02 cm Lary Urbina [employer] Work Phone: [phone] [address] 11-04-2024 11:15-0400 Body mass index (BMI) [Ratio] 31.9 kg/m2 Alryruss Urbina [employer] Work Phone: [facility] 11-04-2024 11:15-0400 Body weight 81.87 kg Lary Urbina [employer] Work Phone: 2([phone] [place] [address] 11-04-2024 11:15-0400 Diastolic blood pressure 84 mm[Hg] Lary Urbina [employer] Work Phone: 2([phone] [place] [address] 11-04-2024 11:15-0400 Systolic blood pressure 122 mm[Hg] Lary Urbina [employer] Work Phone: [facility] Encounters Encounter Date Encounter Type Care Provider Facility Start: 04-08-2025 End: 04-08-2025 ambulatory Lary Urbina [facility] Facility:[facility] Start: 03-30-2025 End: 03-30-2025 ambulatory Lary Urbina [facility] Facility:[facility] Start: 03-16-2025 End: 03-16-[address] Ramses Jimenez MD -[facility] Work Phone: Start: 03-16-2025 End: 03-16-2025 ambulatory Lary Urbina [employer] Work Phone: -[facility] Start: 03-01-[address] Ramses Jimenez MD -[facility] Start: 03-01-2025 End: 03-01-[address] Ramses Jimenez MD -[facility] Work Phone: Start: 03-01-2025 End: 03-01-2025 ambulatory Lary Urbina [employer] Work Phone: -[facility] Start: 02-11-2025 Non-patient / Non-visit Ann Retana -[facility] Work Phone: Start: 02-11-2025 ambulatory Lary Urbina [facility] Fa cility:[facility] Start: 01-27-2025 End: 01-27-2025 ambulatory Lary Urbina [employer] Work Phone: -Laboratory Start: 01-27-2025 End: 01-27-2025 Patient encounter procedure Jared Rooney [employer] -Laboratory Work Phone: Start: 01-27-2025 End: 01-27-2025 ambulatory Abebadenice Beam [facility] Facility:[facility] Start: 11-19-2024 End: 11-19-2024 ambulatory Lary Urbina [employer] Work Phone: [facility] Work Phone: Start: 11-19-2024 End: 11-19-2024 Patient encounter procedure Allie Burleson [employer] -[facility] Work Phone: Start: 11-19-2024 End: 11-19-2024 ambulatory Lary Urbina [facility] Facility:[facility] Start: 11-04-2024 End: 11-04-2024 Patient encounter procedure Allie Burleson [employer] -[facility] Work Phone: Start: 11-04-2024 End: 11-04-2024 Patient encounter status Allie Burleson [employer] [facility] Start: 11-04-2024 End: 11-04-2024 ambulatory Lary Urbina [employer] Work Phone: [facility] Work Phone: Start: 09-23-2024 Registered [facility] HEALTH RISK [facility]SE [facility] -[facility] Start: 09-23-2024 ambulatory Health Risk Assessment Facility:[facility] Start: 10-17-2023 Patient encounter procedure [facility], [facility] Work Phone: Start: 10-11-2023 End: 10-11-2023 ambulatory [facility] Work Phone: Start: 10-11-2023 End: 10-11-2023 Patient encounter procedure [facility]-Laboratory Work Phone: Procedures Date Procedure Procedure Detail Performing Clinician Start: 03-01-2025 Copper measurement, serum Lary Hernandez in [employer] Work Phone: Comment on above: Detection Limit = 5 Start: 03-01-2025 Procedure Lary Urbina [employer] Work Phone: Comment on above: Test Ordered: [id number] Flow panel: Leukemi a/LymphomaFlow Interpretation Comment -Y Reference Range: .No significant immunophenotypic abnormality detected.Clinical Information Comment -Y Reference Range: .A recent CBC was not available for review at the time this report wasprepared.Specimen Type Comment -Y Reference Range: .Peripheral bloodAssessment of Leukocytes Comment -Y Reference Range: .No monoclonal B cell population is detected.kappa:lambda ratio 1.4There is no loss of, or aberrant expression of, the fletcher T cell antigens tosuggest a neoplastic T cell process.CD4:CD8 ratio 2.9A small population (7% of T cells) of double positive (CD4+/CD8+) T cellsis detected. Double positive T cells have been described in associationwith chronic viral infections, autoimmune disorders, chronic inflammatorydisorders, and immunodeficiency states.No circulating blasts are detected.There is no immunophenotypic evidence of abnormal myeloid maturation.Analysis of the leukocyte population shows: granulocytes 52%, monocytes 4%,lymphocytes 44%, blasts <0.1%, B cells 5%, T cells 36%, NK cells 3%Viability Comment -Y Reference Range: .91%Analysis and Gating Strategy Comment -Y Reference Range: .8 color analysis with CD45/SSC gating Technical-Analysis performed at [facility], [employer], [address], [facility] [address], Director: Azeem Heller [facility], Phenotype Chart Comment -Y Reference Range: .CD2 Normal CD3 NormalCD4 Normal CD5 NormalCD7 Normal CD8 ClcxqvYW39 Normal CD11b ColtjjXW23 Normal CD14 ZqcstfGV54 Normal CD19 CwbcuyDF19 Normal CD33 YegbcjOK01 Normal CD38 TixncoGQ33 Normal CD56 KepxcnZS52 Normal CD64 RbmdwhDA994 Normal HLA-DR NormalKAPPA Normal LAMBDA NormalResulting Path Name Comment -Y Reference Range: .June Antonio M.D.Comment: Comment Reference Range: .Each antibody in this assay was utilized to assess forpotential abnormalities of studied cell populations or tocharacterize identified abnormalities.This test was developed and its performance characteristicsdetermined by [employer]. It has not been cleared or approvedby the U.S. Food and Drug Administration.The FDA has determined that such clearance or approval isnot necessary. This test is used for clinical purposes. Itshould not be regarded as investigational or for research.Performed at: - - [facility] [id number] [facility], [place] [id number] Director: Azeem Heller [facility], Phone: [phone] at: [facility] [id number] [facility] [place] [place] [id number] Director: Azeem Heller [facility], Phone: [phone] at: [facility] [address] [id number] Director: Kobe Gallegos PhD, Phone: [phone] Start: 03-01-2025 Total iron binding capacity measurement Lary Urbina [employer] Work Phone: Start: 03-01-2025 Vitamin B12 measurement Lary Urbina [employer] Work Phone: Start: 01-27-2025 MCKENZIE measurement Lary Urbina [employer] Work Phone: Comment on above: Performed at: [id number] [place], [place] [id number] Director: Kobe Gallegos PhD, Phone: [phone] Start: 11-19-2024 Screening mammography Lary Urbina [employer] Work Phone: Start: 09-23-2024 Serum inorganic phosphate measurement Lary Urbina [employer] Work Phone: Start: 10-17-2023 Transvaginal echography Plan of Treatment Date Care Activity Detail Author MG Breast - bilateral Screening [facility] Immunizations Immunization Date Immunization Notes Care Provider Fa danny 04-16-2024 influenza, seasonal, injectable, preservative free Lary Urbina [employer] Work Phone: [facility] 04-17-2023 influenza, injectabl e, quadrivalent, preservative free [facility] 04-16-2022 influenza, injectabl e, quadrivalent, preservative free [facility] 04-12-2021 Covar ([facility]) [facility] 04-04-2021 influenza, injectabl e, quadrivalent, preservative free [facility] 07-06-2020 Covid ([facility]) [facility] 06-08-2020 Covid ([facility]) [facility] 04-13-2020 influenza, injectabl e, quadrivalent, preservative free [facility] 04-13-2019 influenza, injectabl e, quadrivalent, preservative free [facility] 04-09-2018 influenza, injectabl e, quadrivalent, preservative free [facility] 03-06-2017 influenza, injectabl e, quadrivalent, preservative free [facility] 03-08-2016 influenza, injectabl e, quadrivalent, preservative free [facility] 04-05-2015 influenza, injectabl e, quadrivalent, preservative free [facility] 03-04-2014 influenza, injectabl e, quadrivalent, preservative free [facility] 06-18-2013 Influenza virus vaccine [facility] Payers Date Payer Category Payer Self-pay 2024 Unknown [id number] 2000 Unknown [id number] Unknown [id number] 2.16.8 [id number] Unknown [id number] 2.16.8 [id number] Unknown [id number] 2.16.8 [id number] Unknown [id number] 2.16.8 [id number] Unknown [id number] 2.16.8 [id number] Unknown [id number] 2.16.8 [id number] Unknown [id number] 2.16.8 [id number] Unknown [id number] 2.16.8 [id number] Unknown [id number] 2.16.8 [id number] Unknown [id number] 2.16.8 [id number] Social History Date Type Detail Facility Start: 1970 Female [facility] Work Phone: Start: 10-31-2023 Tobacco smoking stat [facility] Never smoked tobacco (finding) [facility] Sex Female [facility] NEGATED: Highlighted row No Social History Information Available No Social History Information Available [facility] Work Phone: Progress note 03-16-2025 Note Date & Type Note Facility 03-16-2025 Progress note [facility] Evaluation note 03-01-2025 Note Date & Type Note Facility 03-01-2025 Evaluation note Diagnosis Onset Date Resolution Leukopenia chronic February 10:49am High serum vitamin B12 acute Oc tob2024 3:15pm Low folate acute March 16 025 3:15pm Leukopenia chronic March 16 025 3:15pm [facility] Work Phone: Progress note 03-01-2025 Note Date & Type Note Facility 03-01-2025 Progress note [facility] Evaluation note 11-04-2024 Note Date & Type Note Facility 11-04-2024 Evaluation note Diagnosis Onset Date Resolution Encounter for routine gynecological examination noneactive November 04, 2024 11:11am [facility] Work Phone: Evaluation note Note Date & Type Note Facility Evaluation note No assessment information availa ble [facility] Work Phone: Evaluation note Note Date & Type Note Facility Evaluation note Diagnosis Onset Date Resolution Encounter for routine gynecological examination noneactive November 04, 2024 11:11am [facility] Work Phone: Evaluation note Note Date & Type Note Facility Evaluation note Diagnosis Onset Date Resolution Leukopenia chronic February 10:49am [facility] Work Phone: Progress note Note Date & Type Note Facility Progress note Note Date/Time March 01, 2025 11:51am [facility] [address] [address] OFFICE VISIT Date of Service: 03/01/25 1052 MR#: [id number] Acct: [id number] Name: JENNIFER DYKES Rep #: [id number] : 1970 From: Ramses Jimenez MD Age/Sex: 55/F Location: [facility] Status: Signed HPI Subjective Date of Service 03/01/25 Chief Complaint Referred for Leukopenia. History of Present Illness 55-year-old woman was found to have leukopenia and referred for further evaluation. She is on Tizepatide for weight loss and low carbohydrate diet. Before that she was on semaglutide. She denies fever or night sweats, nausea orvomiting. [facility] Medical History (Updated 03/01/25 @ 17:[address] Ramses Jimenez MD) VINCENZO (generalized anxiety disorder) Fatigue Hyperlipidemia Neutropenia Leukopenia Allergic reaction to wasp sting Family History Mother Hypertension High cholesterol Uncle Cancer Lung cancer Social History adopted: No household members: spouse [...] Yes additional social history: - Michael- Retired ROS Constitutional Constitutional: Reports systems reviewed and no addt'l complaints, except as documented Eyes Eyes: Reports systems reviewed and no addt'l complaints, except as documented ENT HEENT: Reports systems reviewed and no addt'l complaints, except as documented Cardiovascular Cardiovascular: Reports systems reviewed and no addt'l complaints, except as documented Respiratory/Chest Respiratory/Chest: Reports systems reviewed and no addt'l complaints, except as documented Gastrointestinal Gastrointestinal: Reports systems reviewed and no addt'l complaints, except as documented Genitourinary Genitourinary: Reports systems reviewed and no addt'l complaints, except as documented Musculoskeletal Musculoskeletal: Reports systems reviewed and no addt'l complaints, except as documented Integumentary Integumentary: Reports systems reviewed and no addt'l complaints, except as documented Neurologic Neurologic: Reports systems reviewed and no addt'l complaints, except as documented Psychiatric Psychiatric: Reports systems reviewed and no addt'l complaints, except as documented Endocrine Endocrinology: Reports systems reviewed and no addt'l complaints, except as documented Hematologic/Lymphatic Hematologic/Lymphatic: Reports systems reviewed and no addt'l complaints, exceptas documented Allergic/Immunologic Allergic/Immunologic: Reports systems reviewed and no addt'l complaints, except as documented Intake Vital Signs 11/04/24 11:19 03/01/25 10:52 Height 5 ft 3 in 5 ft 3 in Weight: 71.866 kg BMI 28.0 BP 154/93 H Blood Pressure Location Rt brachial Position Sitting Respiration 16 Pulse 63 Pulse Source Monitor Temp 98.2 F Temperature Source Temporal Artery Pulse Oximetry (%) 100 Oxygen Delivery Method room air Intake Is patient in pain?: No Allergies No Known Allergies Allergy (Verified 03/01/25 10:57) Medications ?Medication ?Instructions ?Recorded ?Confirmed ?Type rosuvastatin 5 mg tablet (Crestor) 5 mg PO DAILY Muna sterol 11/04/24 03/01/25 History buspirone 5 mg tablet 5 mg PO BID 02/11/25 5 History amlodipine 5 mg tablet (Norvasc) 5 mg PO DAILY High Bl ood Pressure 03/01/25 03/01/25 History tirzepatide 15 mg/0.5 mL mg subcut Weight loss 03/01/25 History subcutaneous pen injector Exam Physical Exam Const alert, oriented x3 and no apparent distress HEENT normocephalic, external ears normal and external nose normal Eyes EOMs intact bilaterally, conjunctivae normal and no scleral icterus Neck supple Lymph Lymphatic: no lymphadenopathy noted Chest inspection of chest normal and inspection of breasts normal Resp normal respiratory effort and no use of accessory muscles Cardio regular rate, regular rhythm, S1 normal heart sound, S2 normal heart sound and no murmurs GI normal to inspection, nondistended, normoactive bowel sounds no CVA tenderness Back/Spine thoracic and lumbar spine normal to inspection Extremity no clubbing, cyanosis or edema Skin no rashes or lesions noted Neuro oriented x3, CN's II-XII intact bilaterally and moves all extremities Psych mental status grossly normal Coding Level of Care Code Off vis,new,level 3 Exam Problem Focused Diagnoses Neutropenia, unspecified type D70.9 Leukopenia type: neutropenia Neutropenia type: unspecified Assessment and Plan Assessment and Plan (1) Leukopenia: Status: Chronic Qualifiers: Leukopenia type: neutropenia Neutropenia type: unspecified Qualified Code(s): D70.9 - Neutropenia, unspecified Comment: Discussed causes of leukopenia and evaluation, patient wants to proceed with evaluation. Plan: To obtain lab work/CBC/CMP/LDH/iron profile/B12 and folate/copper level/zinc level/CRP Orders: Orders CBC W/Diff, Automated Today D70.9 - Neutropenia, unspecified Erythrocyte Sed Rate Today D70.9 - Neutropenia, unspecified CRP Today D70.9 - Neutropenia, unspecified Ferritin Today D70.9 - Neutropenia, unspecified Iron+Iron Binding Capacity Today D70.9 - Neutropenia, unspecified Vitamin B12 Today D70.9 - Neutropenia, unspecified FOLATES,SERUM (FOLIC ACID) Today D70.9 - Neutropenia, unspecified Comprehensive Metabolic Profil Today D70.9 - Neutropenia, unspecified LDH Today D70.9 - Neutropenia, unspecified Zinc, Plasma or Serum Today D70.9 - Neutropenia, unspecified Copper, Serum or Plasma Today D70.9 - Neutropenia, unspecified [facility] Misc. Today D70.9 - Neutropenia, unspecified Plan Details Follow Up: 2 Weeks 03/01/25 1703 <Electronically signed by Ramses Marmolejo> Date _ Ramses Jimenez MD Cosigner Signature: Date (if applicable) CC: VSC CEMENTING BULK MATERIAL OPERATOR-C Lary Urbina; Jared C CEMENTING BULK MATERIAL OPERATOR-C Toribio ~ [facility] [employer] Work Phone: Progress note Note Date & Type Note Facility Progress note Note Date/Time March 16, 2025 4:03pm [facility] [address] [address] OFFICE VISIT Date of Service: 03/16/25 1526 MR#: [id number] Acct: [id number] Name: JENNIFER DYKES Rep #: [id number] : 1970 From: Ramses Jimenez MD Age/Sex: 55/F Location: [facility] Status: Signed HPI Subjective Date of Service 03/16/25 Chief Complaint F/u for Leukopenia. History of Present Illness 55-year-old woman was found to have leukopenia and referred for further evaluation. She is on Tizepatide for weight loss and low carbohydrate diet. Before that she was on semaglutide. Had blood work and comes for follow up. She denies fever or night sweats, nausea or vomiting. [facility] Medical History VINCENZO (generalized anxiety disorder) Fatigue Hyperlipidemia Neutropenia Leukopenia Allergic reaction to wasp sting Family History Mother Hypertension High cholesterol Uncle Cancer Lung cancer Social History adopted: No household members: spouse [...] Yes additional social history: - Michael- Retired Intake Vital Signs 03/01/25 10:52 03/16/25 15:26 Height 5 ft 3 in 5 ft 3 in Weight: 71.214 kg BMI 27.8 BP 115/77 Blood Pressure Location Lt brachial Position Sitting Respiration 18 Pulse 66 Pulse Source Monitor Temp 98.6 F Temperature Source Temporal Artery Pulse Oximetry (%) 100 Oxygen Delivery Method room air Intake Accompanied by: Self Is patient in pain?: Yes (left hip) Pain scale (1-10): 2 Allergies No Known Allergies Allergy (Verified 03/16/25 15:34) Medications ?Medication ?Instructions ?Recorded ?Confirmed ?Type rosuvastatin 5 mg tablet (Crestor) 5 mg PO DAILY Muna sterol 11/04/24 03/16/25 History buspirone 5 mg tablet 5 mg PO BID 02/11/25 5 History amlodipine 5 mg tablet (Norvasc) 5 mg PO DAILY High Bl ood Pressure 03/01/25 03/16/25 History tirzepatide 15 mg/0.5 mL mg subcut Weight loss 03/16/25 History subcutaneous pen injector vits no.126-ferrous fum tab PO DAILY 03/16/25 03/16/25 History 28 mg iron-folic acid 800 mcg tablet (Classic ) Central Venous Access Central Venous Access: No Laboratory Tests 03/01/25 11:58 WBC 3.5 L Hgb 13.6 Hct 39.4 Plt Count 265 Absolute Neuts (auto) 1.3 L Absolute Lymphs (auto) 1.80 ESR 10 Sodium 138 Potassium 3.7 Chloride 103 Carbon Dioxide 21.6 BUN 12 Creatinine 0.70 Glucose 77 Calcium 9.4 Iron 71 Iron Saturation 26.7 Ferritin 380 H Total Bilirubin 0.43 AST 16 ALT 14 Alkaline Phosphatase 58 Lactate Dehydrogenase 176 C-React Prot Ext Range < 3.00 Total Protein 7.4 Albumin 4.5 Globulin 2.9 Vitamin B12 > 4000 H Serum Folate 3.85 L 03/01/2025 Flow cytometry reviewed, Test Ordered: [id number] Flow panel: Leukemia/Lymphoma Flow Interpretation Comment -Y Reference Range: No significantimmunophenotypic abnormality detected. Clinical Information Comment -Y Exam Physical Exam Const alert, oriented x3 and no apparent distress Coding Level of Care Code Off vis,est,level 3 Exam Problem Focused Diagnoses Neutropenia, unspecified type D70.9 Leukopenia type: neutropenia Neutropenia type: unspecified High serum vitamin B12 R79.89 Low folate E53.8 Assessment and Plan Assessment and Plan (1) Leukopenia: Status: Chronic Qualifiers: Leukopenia type: neutropenia Neutropenia type: unspecified Qualified Code(s): D70.9 - Neutropenia, unspecified Comment: Flow cytometry is normal. Plan: To do observation. Start Folic acid. (2) High serum vitamin B12: Status: Acute Plan: To hold Vitamin B12. (3) Low folate: Status: Acute Plan: Increase Folic acid intake. 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) November 04, 2024 11:11 am screen for breast cancer November 19, 2024 1:00pm Reason for Visit Admit Date Encounter for routine gynecological exam ination November 04, 2024 11:11am Chief Complaint POST MEHNAZ BLEEDING Chief Complaint Admit Date EMPLOYEE HEALTH September 23, 2024 6:2 9am 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) November 04, 2024 11:11 am Chief Complaint Admit Date EMPLOYEE HEALTH September 23, 2024 6:2 9am 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) November 04, 2024 11:11 am screen for breast cancer November 19, 2024 1:00pm Chief Complaint Admit Date screen for breast cancer November 19, 2024 1:00pm Amb Documentation February 11, 2025 8:52am LEUKOPENIA,NEUTROPENIA March 01, 2 025 10:49am Reason for Visit Admit Date Leukopenia March 01, 2025 10:49am Chief Complaint Admit Date screen for breast cancer November 19, 2024 1:00pm Amb Documentation February 11, 2025 8:52am LEUKOPENIA,NEUTROPENIA March 01, 2 025 10:49am 2 WEEKS LABS PRIOR March 16, 2025 3: 15pm Reason for Visit Admit Date Leukopenia March 01, 2025 10:49am High serum vitamin B12 March 16, 2025 3:15pm Low folate March 16, 2025 3: 15pm Leukopenia March 16, 2025 3: 15pm Family History No Family History Records Found Relationship Condition Age at Onset Recorded Date/T kaylynn mother Hypertension Unknown High blood cholesterol Unknown uncle Malignant neoplasm Unknown Summary Purpose Advance Directives No Advanced Directives Records Found Additional Source Comments Care Teams (unrecognized sec tion and content) Team Status: Active Member Role Status Dates Lary RODRIGUESC, CEMENTING BULK MATERIAL OPERATOR-C Primary Care Provider Activ e Team Status: Active Member Role Status Dates Lary ORR, CEMENTING BULK MATERIAL OPERATOR-C Primary Care Provider Activ e Start: September 23, 2024 Health Risk Assessment Attending Provider Active Start: September 23, 2024 Health Risk Assessment Referring Provider Active Start: September 23, 2024 Team Status: Inactive Member Role Status Dates Lary ORR, CEMENTING BULK MATERIAL OPERATOR-C Primary Care Provider Activ e Start: November 04, 2024 End: November 04, 2024 Lary ORR, CEMENTING BULK MATERIAL OPERATOR-C Referring Provider Active Start: November 04, 2024 End: November 04, 2024 Allie Burleson CEMENTING BULK MATERIAL OPERATOR, CEMENTING BULK MATERIAL OPERATOR-C Attending Provider Active Start: November 04, 2024 End: November 04, 2024 Team Status: Inactive Member Role Status Dates Lary Urbina VSC, CEMENTING BULK MATERIAL OPERATOR-C Primary Care Provider, Attending Provider, Referring Provider Active Team Status: Active Member Role Status Dates Lary Urbina VSC, CEMENTING BULK MATERIAL OPERATOR-C Primary Care Provider, Attending Provider, Referring Provider Active Team Status: Inactive Member Role Status Dates Lary ORR, CEMENTING BULK MATERIAL OPERATOR-C Primary Care Provider Activ e Start: November 19, 2024 End: November 19, 2024 Allie Burleson CEMENTING BULK MATERIAL OPERATOR, CEMENTING BULK MATERIAL OPERATOR-C Attending Provider Active Start: November 19, 2024 End: November 19, 2024 Allie Burleson CEMENTING BULK MATERIAL OPERATOR, CEMENTING BULK MATERIAL OPERATOR-C Referring Provider Active Start: November 19, 2024 End: November 19, 2024 Team Status: Active Member Role/Relationship Status Dates Lary RODRIGUESC, CEMENTING BULK MATERIAL OPERATOR-C Primary Care Provider Activ e Team Status: Inactive Member Role/Relationship Status Dates Lary ORR, CEMENTING BULK MATERIAL OPERATOR-C Primary Care Provider Activ e Start: November 04, 2024 End: November 04, 2024 Lary RODRIGUESC, CEMENTING BULK MATERIAL OPERATOR-C Referring Provider Active Start: November 04, 2024 End: November 04, 2024 Allie Burleson CEMENTING BULK MATERIAL OPERATOR, CEMENTING BULK MATERIAL OPERATOR-C Attending Provider Active Start: November 04, 2024 End: November 04, 2024 Team Status: Inactive Member Role/Relationship Status Dates Lary Urbina VSC, CEMENTING BULK MATERIAL OPERATOR-C Primary Care Provider Activ e Start: November 19, 2024 End: November 19, 2024 Allie Burleson CEMENTING BULK MATERIAL OPERATOR, CEMENTING BULK MATERIAL OPERATOR-C Attending Provider Active Start: November 19, 2024 End: November 19, 2024 Allie Burleson CEMENTING BULK MATERIAL OPERATOR, CEMENTING BULK MATERIAL OPERATOR-C Referring Provider Active Start: November 19, 2024 End: November 19, 2024 Team Status: Inactive Member Role/Relationship Status Dates Lary Urbina VSC, CEMENTING BULK MATERIAL OPERATOR-C Primary Care Provider Activ e Start: January 27, 2025 End: January 27, 2025 Zebulun Beam VSC, CEMENTING BULK MATERIAL OPERATOR-C Attending Provider Active Start: January 27, 2025 End: January 27, 2025 Zebulun Beam VSC, CEMENTING BULK MATERIAL OPERATOR-C Referring Provider Active Start: January 27, 2025 End: January 27, 2025 Team Status: Active Member Role/Relationship Status Dates Lary Urbina VSC, CEMENTING BULK MATERIAL OPERATOR-C Primary care physician Acti ve Team Status: Inactive Member Role/Relationship Status Dates Lary Urbina VSC, CEMENTING BULK MATERIAL OPERATOR-C Primary care physician Acti ve Start: November 19, 2024 End: November 19, 2024 Allie Burleson CEMENTING BULK MATERIAL OPERATOR, CEMENTING BULK MATERIAL OPERATOR-C Attending physician Active Start: November 19, 2024 End: November 19, 2024 Allie Burleson CEMENTING BULK MATERIAL OPERATOR, CEMENTING BULK MATERIAL OPERATOR-C Referring Provider Active Start: November 19, 2024 End: November 19, 2024 Team Status: Inactive Member Role/Relationship Status Dates Lary Urbina VSC, CEMENTING BULK MATERIAL OPERATOR-C Primary care physician Acti ve Start: January 27, 2025 End: January 27, 2025 Zebulun Beam VSC, CEMENTING BULK MATERIAL OPERATOR-C Attending physician Active Start: January 27, 2025 End: January 27, 2025 Zebulun Beam VSC, CEMENTING BULK MATERIAL OPERATOR-C Referring Provider Active Start: January 27, 2025 End: January 27, 2025 Team Status: Active Member Role/Relationship Status Dates Lary Urbina VSC, CEMENTING BULK MATERIAL OPERATOR-C Primary care physician Acti ve Start: February 11, 2025 Ann Retana Attending physician Active Start: February 11, 2025 Team Status: Inactive Member Role/Relationship Status Dates Lary Urbina VSC, CEMENTING BULK MATERIAL OPERATOR-C Primary care physician Acti ve Start: March 01, 2025 End: March 01, 2025 Dr. Ramses Jimenez MD Attending physician Active Start: March 01, 2025 End: March 01, 2025 Zebulun Beam VSC, CEMENTING BULK MATERIAL OPERATOR-C Referring Provider Active Start: March 01, 2025 End: March 01, 2025 Team Status: Active Member Role/Relationship Status Dates Lary Carlitos RODRIGUESC, CEMENTING BULK MATERIAL OPERATOR-C Primary care physician Acti ve Start: March 01, 2025 Dr. Ramses Jimenez MD Attending physician Active Start: March 01, 2025 Dr. Ramses Jimenez MD Referring Provider Active S tart: March 01, 2025 Team Status: Inactive Member Role/Relationship Status Dates Lary ORR NP-Claude Primary care physician Acti ve Start: March 16, 2025 End: March 16, 2025 MARLO Alvarez Referring Provider Active Start: March 16, 2025 End: March 16, 2025 Dr. Ramses Jimenez MD Attending physician Active Start: March 16, 2025 End: March 16, 2025 Goals (unrecognized section and content) Goals may be documented in a n alternate sectionGoals may be documented in an alternate sectionGoals may be documented in an alternate sectionGoals may be documented in an alternate sectionGoals may be documented in an alternate sectionGoals may be documented in an alternate section INFORMATION SOURCE (unrecogn ized section and content) DATE CREATED AUTHOR 04/20/2025 [facility] FOR RECORDS PERTAINING TO PATIENTS WHO ARE [...] BE BASED ON THE PRIMARY CLINICAL RECORDS. [employer] provides no warranty or guarantee of the accuracy or completeness of information in this document.
[2025-05-19 07:51] LABS: Hematocrit 39.6 % (37-47); Hemoglobin 13.5 g/dL (12.0-15.0); Immature Granulocytes Count 0.000 X10^3/uL (0.0-0.0); Immature Reticulocyte Fraction 4.70 % (3.00-15.90); Mean Corp Hgb Conc 34.1 g/dL (32-36); Mean Corpuscular Volume 89.2 fL (81-99); Mean Platelet Vol. 11.5 fl (6.2-12.0); NRBC Flagged by Analyzer 0 % (0-5); Platelet Count 239 K/mm3 (150-450); RBC Distribution Width CV 14.2 % (11.6-14.6); RBC Distribution Width SD 45.9 fl (35.1-43.9); Red Blood Count 4.44 M/mm3 (4.2-5.4); Reticulocyte Count 1.31 % (0.5-1.5); White Blood Count 3.8 K/mm3 (4.4-11.0)
[2025-05-19 07:55] LABS: AST(SGOT) 19 U/L (<=31); Alanine Aminotransfer ALT/SGPT 27 U/L (<=34); Albumin, Serum 4.4 g/dL (3.5-5.0); Alkaline Phosphatase 53 U/L (35-104); Anion Gap 10 (5-15); BUN 17 mg/dL (4-19); BUN/Creat Ratio 26.6 RATIO (10-20); Calcium,Total 9.6 mg/dL (7.6-11.0); Carbon Dioxide 25.3 mmol/L (21.0-32.0); Chloride 104 mmol/L (98-108); Globulin 2.6 g/dL (2.2-4.2); Glucose 86 mg/dL (70-99); Potassium 4.0 mmol/L (3.3-5.1)
[2025-05-19 08:24] LABS: Ferritin 563 ng/mL (22-378); Vitamin B12 2112 pg/mL (180-914)
[2025-05-19 08:26] LABS: CRP < 3.00 mg/L (0.0-3.0); FOLATES,SERUM (FOLIC ACID) 22.00 ng/mL (4.60-34.80); Iron 91 ug/dL (50-170); Iron Binding Capacity,Unsat 141 ug/dL (228-428); LDH 160 U/L (84-246); Magnesium 2.1 mg/dL (1.5-2.2)
[2025-05-19 08:27] LABS: Iron Binding Capacity,Total 232 ug/dL (250-450)
[2025-05-20 04:07] LABS: GGTP 7 IU/L (0-60)
== END | disposition home or self-care (01) ==
PROVIDERS: PCP Nurse Practitioner Family; Referring Provider Internal Medicine Medical Oncology; Visit Provider Internal Medicine Medical Oncology
DX: E53.8 Deficiency of other specified B group vitamins (principal); D70.9 Neutropenia, unspecified; R79.89 Other specified abnormal findings of blood chemistry
CPT/HCPCS: 36415; 80053; 82607; 82728; 82746; 82977; 83540; 83550; 83615; 83735; 84100; 85025; 85045; 85652; 86140